=== PATIENT | male | born 1950 | race Caucasian/White ===

== ENCOUNTER 2018-08-25 10:21 | Outpatient (CLI) | payer MEDICARE, SELFPAY ==
[2018-08-25 13:12] LABS: Hemoglobin A1C 7.2 % (4.5-6.2)
== END 2018-08-25 10:41 ==
PROVIDERS: PCP Emergency Medicine; Visit Provider Emergency Medicine
DX: E10.9 Type 1 diabetes mellitus without complications (principal)
CPT/HCPCS: 36415; 83036

== ENCOUNTER 2018-09-30 15:57 | Emergency (ER) | payer MEDICARE, SELFPAY ==
[2018-09-30 16:00] VITALS: BP 138/93; PULSE 94; RESP 16; TEMP 36.2; O2SAT 93
--- NOTE | 2018-09-30 16:13 | DI.CT_ITS ---
SYMPTOM/DIAGNOSIS: LLQ PAIN, R/O DIVERTICULITIS ABDOMINAL AND PELVIC CT: 09/30 CT examination of the abdomen and pelvis was performed with a bolus infusion of 100 cc Omnipaque 350. Images obtained through the lung bases were unremarkable. Note is made of hepatic steatosis. Question cholelithiasis, indeterminate by CT criteria. No biliary dilatation. Unremarkable appearance of the pancreas. Unremarkable appearance of the spleen. Multiple small exophytic renal masses are noted consistent with cysts. No evidence of urinary tract calcification or obstruction. Adrenals are unremarkable in appearance. Abdominal aorta is of normal diameter and no major vascular abnormalities seen. No significant abdominal wall hernia seen. No abdominal or pelvic adenopathy seen. Appendix is normal. There is an area of wall thickening with associated pericolonic fat edema at the descending sigmoid junction consistent with uncomplicated diverticulitis. No evidence of perforation or abscess formation. No evidence of obstruction. CONCLUSION: 1. Findings consistent with acute uncomplicated diverticulitis at the descending sigmoid colon junction 2. Hepatic steatosis 3. Suspect cholelithiasis, ultrasound correlation suggested if clinically appropriate.
[2018-09-30 16:30] LABS: Abs Immature Grans 0.01 k/cumm (0.0-0.09); Absolute Basophil Count 0.03 k/cumm (0.0-0.2); Absolute Eosinophil Count 0.17 k/cumm (0.0-0.7); Absolute Lymphocyte Count 2.57 k/cumm (1.2-3.4); Absolute Monocyte Count 0.75 k/cumm (0.11-0.7); Absolute Neutrophil Count 6.51 k/cumm (1.2-6.7); Basophils % 0.3; Eosinophils % 1.7; HCT 47.2 % (40.0-50.0); HGB 16.4 g/dL (13.5-17.5); Immature Grans % 0.1; Lymphocytes % 25.6; Mean Corp. HGB Concentration 34.7 g/dL (32.0-36.0); Mean Corpuscular Hemoglobin 31.8 pg (27.0-33.0); Mean Corpuscular Volume 91.7 fL (80-95); Mean Platelet Volume 9.4 fL (8.0-11.0); Monocytes % 7.5; Neutrophils % 64.8; Platelet Count 250 x1000/uL (130-400); RBC 5.15 m/cumm (4.50-6.00); RBC Distribution Width 13.6 % (11.8-14.1); White Blood Cell Count 10.04 k/cumm (4.4-10.8)
[2018-09-30 16:44] LABS: ALT 43 U/L (12-78); AST 18 U/L (15-37); Albumin 3.9 g/dL (3.4-5.0); Alkaline Phosphatase 62 U/L (46-116); Anion Gap 7.7 mmol/L (3-11); BUN 17 mg/dL (7-18); Bilirubin, Total 0.4 mg/dL (0.2-1.0); CO2 29.3 mmol/L (21.0-32.0); Chloride 101 mmol/L (98-107); Glucose 178 mg/dL (70-100); Lipase 82 U/L (73-393); Sodium 138 mmol/L (136-145); Total Protein 7.5 g/dL (6.4-8.2)
[2018-09-30] MEDS: Omnipaque 350 MG/ML 100 ML BTL IJ (17:24)
--- NOTE | 2018-09-30 17:27 | ED.GENADUL_ITS ---
Discharge Plan Disposition Patient Disposition: HOME Condition: Good Discharge Details Chief Complaint: Abd Prob Clinical Impression: Diverticulitis Primary Care Provider: Phillip Luo ED Provider: Stone Castaneda Home Meds and New Rx's Prescriptions: New ciprofloxacin HCl [Cipro] 500 mg tablet 500 mg PO BID Qty: 14 RF: 0 metronidazole [Flagyl] 500 mg tablet 500 mg PO TID 7 Days Qty: 21 RF: 0 No Action hydrochlorothiazide 12.5 mg capsule 12.5 mg PO DAILY Qty: 90 RF: 3 lisinopril 10 mg tablet 10 mg PO DAILY Qty: 90 RF: 3 sertraline 100 mg tablet 100 mg PO DAILY Qty: 90 RF: 3 triamcinolone acetonide 0.1 % ointment 1 applic Topical BID Qty: 80 RF: 3 nicotine 21 mg/24 hr patch 24 hour 1 patch TD DAILY Qty: 28 RF: 5 CONTOUR NEXT EZ 1 EACH EACH 1 ea Miscellaneous DAILY Qty: 90 RF: 3 ketoconazole 60 GM cream 60 gm Topical BID Qty: 1 RF: 3 blood-glucose meter 1 EACH misc 1 ea Miscellaneous ONCE Qty: 1 RF: 0 nicotine (polacrilex) [Nicorette] 4 MG gum 4 mg PO Q2H PRN Qty: 100 RF: 4 blood sugar diagnostic [Blood Glucose Test] 1 EACH strip 1 ea Miscellaneous BID Qty: 180 RF: 3 gabapentin 300 MG capsule 2 cap PO HS Qty: 180 RF: 3 Jardiance 10 mg tablet 10 mg PO DAILY Qty: 90 RF: 3 lancets 28 gauge misc 1 ea Miscellaneous DAILY Qty: 100 RF: 0 pravastatin [Pravachol] 20 mg tablet 20 mg PO DAILY Qty: 90 RF: 4 pen needle,diabetic dual safty [BD AutoShield Duo Pen Needle] 30 gauge x 3/16 needle 1 ea Miscellaneous BID Qty: 180 RF: 3 lorazepam 1 mg tablet 1 mg PO HS PRN (Reason: anxiety) Qty: 90 RF: 1 Lantus Solostar U-100 Insulin 100 UNIT/1 ML insulin pen 25 units SQ BID RF: 0 Discharge Instructions Instructions: Diverticulitis (ED) Additional Instructions: Please take Tylenol as needed for pain. Please take the medication as directed. Please do not take any alcohol with the Flagyl. If you notice any pain in your joints that is worsening, or pain in your ankles or your Achilles tendon please stop taking the Cipro and do not perform any vigorous activity. If you notice any worsening of your symptoms, or any new symptoms such as vomiting, diarrhea, fever, chills, shortness of breath, chest pain, numbness, weakness, or fainting , please return immediately to the emergency department for reevaluation. Please follow up with your primary care provider as soon as possible for reassessment and reevaluation. As always, it was a pleasure participating in your medical care today. Referrals: Phillip Luo DO [Primary Care Provider] - Discharge Data Discharge Date/Time-TO BE ENTERED AT DEPARTURE: 09/30/18 18:27 Medical Decision Making This is a pleasant 67-year-old gentleman who with 1 week of quadrant abdominal pain, 2-3 days of mild diarrhea. He has not had any recent antibiot ics, no recent foreign travel or other sick contacts. Physical exam demonstrates mild to moderate left lower quadrant tenderness. No vomiting. Patient has been able to eat still. Vital signs are reassuring. The patient states that his symptoms are consistent with previous episodes of diverticulitis. Due to the patient's age, I do think it is reasonable to get a CT scan of the abdomen to rule out any acute process including diverticulitis or abscess. We will rehydrate the patient, and perform a laboratory workup. Patient is refusing any medications for pain at this time, and states that he would like to tough it out. 6:11 PM Patient's laboratory workup has returned, he has no elevated white count, no bandemia, and no left shift. Electrolytes are normal, lipase is normal. He is afebrile, heart rate is well controlled and vital signs are reassuring. CT scan has returned and does demonstrate evidence of mild diverticulitis with no evidence of abscess. No other significant acute process. Patient's pain is well tolerable and he continues to not want any pain medications. We will give him the first dose of Cipro and Flagyl here, and then a prescription for home use. We discussed red flags for which to return, the need to have low threshold for return, and the importance of close follow-up with his primary care provider. I have extensively reviewed the treatment plan and discharge instructions with the patient. I have addressed all patient concerns at this time. The patient was made aware of what symptoms to monitor for that would warrant a return to the emergency department. Discussed the plan with the patient, they demonstrate verbal understanding and agreement with our assessment and plan at this time. FINDINGS: Lower thorax: Mild paraseptal pulmonary emphysema and dependent changes within the lung bases. No recurrent gastric hiatus hernia. ABDOMEN: Liver: Diffuse fatty infiltration of the liver. No focal hepatic lesion. No intrahepatic duct dilatation. Gallbladder and bile ducts: Faint increased density within the dependent portion of the gallbladder suspicious for sludge versus tiny stones. No pericholecystic inflammation. Pancreas: Unremarkable. No ductal dilation. Spleen: Unremarkable. No splenomegaly. Adrenals: Normal. No mass. Kidneys and ureters: Small exophytic cysts within the left kidney and too small to accurately characterize low-density lesions within both kidneys. No renal stone or hydronephrosis. 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 If there is a discrepancy between the preliminary and final interpretation, please notify [employer] via [email or web address]. If you do not have access to our QA portal, call our QA team at [phone] CONFIDENTIALITY STATEMENT This report is intended only for the use of the referring physician, and only in accordance with law, If you received this in error, call [phone] Page 2 of 2 Stomach and bowel: Status post gastroesophageal fundoplication. Numerous diverticuli throughout the descending and sigmoid colon. Mild diverticulitis at the junction of the distal descending and sigmoid colon. Appendix: No evidence of appendicitis. PELVIS: Bladder: Unremarkable as visualized. Reproductive: Unremarkable as visualized. ABDOMEN and PELVIS: Intraperitoneal space: Unremarkable. No free air. No significant fluid collection. Bones/joints: No acute fracture. Soft tissues: Unremarkable. Vasculature: Unremarkable. No abdominal aortic aneurysm. Lymph nodes: Unremarkable. No enlarged lymph nodes. IMPRESSION: 1. Mild acute diverticulitis at the junction of the descending and sigmoid colon. 2. Diffuse fatty infiltration of the liver. 3. Findings suspicious for gallbladder sludge versus tiny stones. 4. Tiny renal cysts and too small to adequately characterize renal low density lesions. Thank you for allowing us to participate in the care of your patient. Dictated and Authenticated by: Edinson Escalante MD HPI General Date/Time Provider Initiated Documentation: 09/30/18 16:07 . HPI Narrative: This is a 67-year-old male with past medical history of diverticulitis, diabetes, and hypertension who presents today for evaluation of left lower quadrant abdominal pain. He states that over the last 1 week he has had mild to moderate left lower quadrant abdominal pain, mild diarrhea for the last 2-3 days. He denies any hematochezia, melena, or acholic stool. He denies any vomiting or nausea. He states that his symptoms are consistent with his previous episodes of diverticulitis. He denies any systemic symptoms of fever or chills. He denies any recent surgeries or trauma. He has no other complaints at this time. No other modifying or relieving factors. Patient has been eating regularly and has been doing well with his oral diet. He denies any recent pertinent family history, he denies any IV or illicit drug use. Related Data Home Medications Medication Instructions Recorded Confirmed ketoconazole 60 gm TOPICAL BID #1 script 05/29/15 09/30/18 blood-glucose meter #1 ea 11/25/15 08/25/18 nicotine (polacrilex) [Nicorette] 4 mg PO Q2H PRN #100 piece of gum 09/10/16 08/25/18 blood sugar diagnostic [Blood #180 strip 02/10/18 08/25/18 Glucose Test Strip] gabapentin 2 cap PO HS #180 tab-cap 05/23/18 09/30/18 empagliflozin 10 mg tablet 10 mg PO DAILY #90 tab 06/13/18 09/30/18 lancets 28 gauge #100 ea 07/25/18 08/25/18 pravastatin 20 mg tablet 20 mg PO DAILY #90 tab 07/25/18 09/30/18 hydrochlorothiazide 12.5 mg capsule 12.5 mg PO DAILY #90 tab 08/25/18 09/30/18 lisinopril 10 mg tablet 10 mg PO DAILY #90 tab 08/25/18 09/30/18 nicotine 21 mg/24 hr daily 1 patch TD DAILY #28 each 08/25/18 09/30/18 transdermal patch sertraline 100 mg tablet 100 mg PO DAILY #90 tab-cap 08/25/18 09/30/18 triamcinolone acetonide 0.1 % 1 applic TOPICAL BID #80 gm 08/25/18 09/30/18 topical ointment pen needle,diabetic dual safety 30 #180 ndl 08/29/18 gauge x 3/16 lorazepam 1 mg tablet 1 mg PO HS PRN #90 tab-cap 09/12/18 09/30/18 ciprofloxacin HCl [Cipro] 500 mg PO BID #14 tab 09/30/18 insulin glargine [Lantus Solostar] 25 units SQ BID 09/30/18 09/30/18 metronidazole [Flagyl] 500 mg PO TID 7 Days #21 tab 09/30/18 Previous Rx's Medication Instructions Recorded blood sugar diagnostic [Blood #180 strip 02/10/18 Glucose Test Strip] gabapentin 2 cap PO HS #180 tab-cap 05/23/18 empagliflozin 10 mg tablet 10 mg PO DAILY #90 tab 06/13/18 lancets 28 gauge #100 ea 07/25/18 pravastatin 20 mg tablet 20 mg PO DAILY #90 tab 07/25/18 hydrochlorothiazide 12.5 mg capsule 12.5 mg PO DAILY #90 tab 08/25/18 lisinopril 10 mg tablet 10 mg PO DAILY #90 tab 08/25/18 nicotine 21 mg/24 hr daily 1 patch TD DAILY #28 each 08/25/18 transdermal patch sertraline 100 mg tablet 100 mg PO DAILY #90 tab-cap 08/25/18 triamcinolone acetonide 0.1 % 1 applic TOPICAL BID #80 gm 08/25/18 topical ointment pen needle,diabetic dual safety 30 #180 ndl 08/29/18 gauge x 316 lorazepam 1 mg tablet 1 mg PO HS PRN #90 tab-cap 09/12/18 ciprofloxacin HCl [Cipro] 500 mg PO BID #14 tab 09/30/18 metronidazole [Flagyl] 500 mg PO TID 7 Days #21 tab 09/30/18 Allergies Allergy/AdvReac Type Severity Reaction Status Date / Time metformin AdvReac Intermediate diarrhea Verified 08/25/18 09:47 General Stated Complaint: Abd Prob AUDRA: 3 Review of Systems Review of Systems All systems reviewed & are unremarkable except as noted in HPI and below PFSH Medical History COPD (chronic obstructive pulmonary disease) Depression Diabetes mellitus type 2 in obese Hyperlipidemia Hypertension Tobacco abuse disorder Surgical History Arthroscopy, Shoulder (~2000) Colonoscopy - MAC (09/09/17) EGD - MAC [place] Fundoplication sphincterotomy Family History Mother Essential hypertension Heart disease Father Heart disease Sister No problems noted. Sister No problems noted. Sister No problems noted. Sister No problems noted. Brother No problems noted. Brother No problems noted. Brother No problems noted. Brother No problems noted. Brother No problems noted. Social History household members: other details: SELF current occupational status: disabled pets and animals: No frequency: daily duration: 15-30 minutes/day Smoking/Tobacco Use Status: Former Tobacco Use alcohol intake: never substance use type: does not use special catherine needs: No Exam Narrative Exam Narrative: 1.Const: Well-nourished, Well-developed, appearing stated age 2.Eyes: PERRL, no conjunctival injection, and symmetrical lids. 3.ENT: Atraumatic external nose and ears. Moist MM. Neck: Symmetric, trachea midline, No thyromegaly. 4.CVS: +S1/S2, No murmurs or gallops. Peripheral pulses 2+ and equal in all extremities. Brisk capillary refill in all extremities. 5.RESP: Unlabored respiratory effort. Clear to auscultation bilaterally. No wheezes rales or rhonchi 6.GI: Soft, Nondistended, No hepatosplenomegaly. No guarding or rebound. No right lower quadrant or right upper tenderness. Mild to moderate left lower quadrant tenderness. 7.MSK: Normocephalic/Atraumatic, Extremities w/o deformity or ttp No cyanosis or clubbing, Normal movement of all extremities 8.Skin: Warm, Dry. No rashes or lesions. 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 Sensation grossly intact, no focal neurologic deficits. 10.Psych: (AAO) x3. Appropriate mood and affect Course Vital Signs Temperature 36.2 C L 09/30/18 16:00 Pulse 94 H 09/30/18 16:00 Respiratory Rate 16 09/30/18 16:00 Blood Pressure 138/93 H 09/30/18 16:00 Pulse Oximetry 93 L 09/30/18 16:00 Temperature 36.2 C L 09/30/18 16:00 Temperature Source Temporal Artery Scan 09/30/18 16:00 Pulse 94 H 09/30/18 16:00 Respiratory Rate 16 09/30/18 16:00 Respiratory Effort 09/30/18 16:03 Blood Pressure 138/93 H 09/30/18 16:00 Blood Pressure Position Sitting 09/30/18 16:00 Pulse Oximetry 93 L 09/30/18 16:00 Oxygen Delivery Method Room Air 09/30/18 16:00 Oxygen Flow Rate 0 09/30/18 16:00 Pain Level 3 09/30/18 16:00 Lab/Test Results Lab/Test Results: Laboratory Tests Range/Units 09/30/18 09/30/18 16:25 16:25 WBC (4.4-10.8) k/cumm 10.04 RBC (4.50-6.00) m/cumm 5.15 Hgb (13.5-17.5) g/dL 16.4 Hct (40.0-50.0) % 47.2 MCV (80-95) fL 91.7 MCH (27.0-33.0) pg 31.8 MCHC (32.0-36.0) g/dL 34.7 RDW (11.8-14.1) % 13.6 Plt Count (130-400) x1000/uL 250 MPV (8.0-11.0) fL 9.4 Immature Gran % 0.1 Neutrophils % 64.8 Lymphocytes % 25.6 Monocytes % 7.5 Eosinophils % 1.7 Basophils % 0.3 Absolute Neutrophils (1.2-6.7) k/cumm 6.51 Absolute Lymphocytes (1.2-3.4) k/cumm 2.57 Absolute Monocytes (0.11-0.7) k/cumm 0.75 H Absolute Eosinophils (0.0-0.7) k/cumm 0.17 Absolute Basophils (0.0-0.2) k/cumm 0.03 Sodium (136-145) mmol/L 138 Potassium (3.5-5.1) mmol/L 4.0 Chloride (98-107) mmol/L 101 Carbon Dioxide (21.0-32.0) mmol/L 29.3 Anion Gap (3-11) mmol/L 7.7 BUN (7-18) mg/dL 17 Creatinine (0.70-1.30) mg/dL 0.80 Estimated GFR/1.73 m2 (mL/min/1.73m2) >= 60.00 Glucose (70-100) mg/dL 178 H Calcium (8.5-10.1) mg/dL 9.0 Total Bilirubin (0.2-1.0) mg/dL 0.4 AST (15-37) U/L 18 ALT (12-78) U/L 43 Alkaline Phosphatase (46-116) U/L 62 Total Protein (6.4-8.2) g/dL 7.5 Albumin (3.4-5.0) g/dL 3.9 Lipase (73-393) U/L 82
--- NOTE | 2018-09-30 17:55 | DI.VRAD_ITS ---
EXAM: CT Abdomen and Pelvis With Contrast EXAM DATE/TIME: 09/30/2018 4:15 PM CLINICAL HISTORY: 67 years old, male; Signs and symptoms; Abdominal tenderness and other: R/O diverticulitis TECHNIQUE: Axial computed tomography images of the abdomen and pelvis with intravenous contrast. Coronal and sagittal reformatted images were created and reviewed. CONTRAST: 100 ml of [id number] administered intravenously. COMPARISON: CT ABD PELVIS WITH CONTRAST 12/26/2017 1:41 PM FINDINGS: Lower thorax: Mild paraseptal pulmonary emphysema and dependent changes within the lung bases. No recurrent gastric hiatus hernia. ABDOMEN: Liver: Diffuse fatty infiltration of the liver. No focal hepatic lesion. No intrahepatic duct dilatation. Gallbladder and bile ducts: Faint increased density within the dependent portion of the gallbladder suspicious for sludge versus tiny stones. No pericholecystic inflammation. Pancreas: Unremarkable. No ductal dilation. Spleen: Unremarkable. No splenomegaly. Adrenals: Normal. No mass. Kidneys and ureters: Small exophytic cysts within the left kidney and too small to accurately characterize low-density lesions within both kidneys. No renal stone or hydronephrosis. Stomach and bowel: Status post gastroesophageal fundoplication. Numerous diverticuli throughout the descending and sigmoid colon. Mild diverticulitis at the junction of the distal descending and sigmoid colon. Appendix: No evidence of appendicitis. PELVIS: Bladder: Unremarkable as visualized. Reproductive: Unremarkable as visualized. ABDOMEN and PELVIS: Intraperitoneal space: Unremarkable. No free air. No significant fluid collection. Bones/joints: No acute fracture. Soft tissues: Unremarkable. Vasculature: Unremarkable. No abdominal aortic aneurysm. Lymph nodes: Unremarkable. No enlarged lymph nodes. IMPRESSION: 1. Mild acute diverticulitis at the junction of the descending and sigmoid colon. 2. Diffuse fatty infiltration of the liver. 3. Findings suspicious for gallbladder sludge versus tiny stones. 4. Tiny renal cysts and too small to adequately characterize renal low density lesions. Dictated and Authenticated by: Edinson Escalante MD. Ordering:EFRAIN Ritter MD
[2018-09-30] MEDS: Ciprofloxacin 500 MG TAB PO (18:20)
[2018-09-30] MEDS: metroNIDAZOLE 500 MG TAB PO (18:20)
[2018-09-30 18:22] VITALS: BP 125/73; PULSE 73; RESP 16; O2SAT 94
== END 2018-09-30 18:27 | disposition home or self-care (01) ==
PROVIDERS: Emergency Provider Student in an Organized Health Care Education/Training Program; PCP Emergency Medicine
DX: K57.32 Diverticulitis of large intestine without perforation or abscess without bleeding (principal); J44.9 Chronic obstructive pulmonary disease, unspecified; F17.210 Nicotine dependence, cigarettes, uncomplicated; E11.9 Type 2 diabetes mellitus without complications; Z79.4 Long term (current) use of insulin; I10 Essential (primary) hypertension
CPT/HCPCS: 36415; 80053; 83690; 99285; 74177; 85025; J3490

== ENCOUNTER → 2018-10-27 12:58 | Outpatient (BNVA) | payer MEDICARE, SELFPAY | PROVIDERS: PCP Emergency Medicine; Referring Provider Emergency Medicine; Visit Provider Surgery | DX: Z87.19 Personal history of other diseases of the digestive system (principal); Z86.010 Personal history of colon polyps; J44.9 Chronic obstructive pulmonary disease, unspecified; Z87.891 Personal history of nicotine dependence; I10 Essential (primary) hypertension; E11.9 Type 2 diabetes mellitus without complications; Z79.4 Long term (current) use of insulin | CPT/HCPCS: 99214 ==

== ENCOUNTER 2018-11-15 06:11 | Day surgery (SDC) | payer MEDICARE, SELFPAY ==
[2018-11-15 06:32] VITALS: BP 124/86; PULSE 74; RESP 18; TEMP 36; O2SAT 94
--- NOTE | 2018-11-15 06:41 | W.COLOREPORT ---
Date of service: 11/15/18 Time of Service: 07:30 Colonoscopy Report Date of procedure: 11/15/18 Pre-op diagnosis general: Hx of polyps Post-op diagnosis procedure note: other (Polyps and mild diverticulosis) Procedure: Colonoscopy with polypectomy by cold forceps Surgeon: Kimberlyn Hutchinson Anesthesia proc note operative: MAC (Natalia Martinez, FRONT END ALIGNMENT SPECIALIST/ ASA 2) Estimated blood loss (mL): 5 Pathology: other (Ascending Polyp, transverse polyp, descending polyp x2, sigmoid polyp) Complications: None Disposition: same day Indications: Mr. Beach is a pleasant 67 year old male who was seen in the office for another colonoscopy. He was noted to have serrated adenoma last time as well as an ulcerated mass which turned out to be ischemic changes but no malignancy. Risks, benefits and complications have been reviewed. Complications include but are not limited to bleeding, pain, perforation, missed small lesion/polyp, sore throat, aspiration and adverse reaction to the medications. Questions were entertained and answered to their satisfaction and they wished to proceed. No guarantees were given or implied. Prep: Miralax/Dulcolax Procedure Start Time: :30 Procedure End Time: 07:58 Retraction Time: 20 minutes Findings: 1. 5 sessile polyps identified and removed 2. mild diverticulosis from the distal transverse to sigmoid colon 3. mass with ulceration not identified. Tattooed area noted no mass or polyp Procedure Description: After informed consent was obtained the patient was taken to the procedure room and placed in a left decubitous position. Monitors were applied and a time out was done. The patients name, date of , procedure, allergies to medications and metal in their body was reviewed. The patient was then sedated. Once sedated and comfortable a rectal exam was done. External exam was normal. Internal exam revealed a normal sphincter tone and no palpable masses. The scope was then introduced and retro-flexed. No internal hemorrhoids were identified. The scope was then advanced to the cecum without difficulty. The TI and appendiceal orifice were identified. The prep was adequate. The scope was then slowly retracted over 20 minutes back into the rectum. Polyps were removed with cold forceps in the ascending, transverse, descending and sigmoid polyp. There was mild diverticulosis in the distal transverse to the sigmoid colon. The scope was removed and the patient was woken up and taken back to Same day surgery in stable condition. The patient tolerated the procedure well and there were no immediate complications. Follow up: The patient should follow up in 3 years unless they develop changes in bowel habits or other new gastrointestinal complaints.
--- NOTE | 2018-11-15 06:43 | W.PM.DSUDISC ---
Discharge Plan Disposition Patient Disposition: HOME Condition: Good Discharge Details Reason For Visit: Hx of polyps Attending Provider: Kimberlyn Hutchinson Primary Care Provider: Phillip Luo Home Meds and New Rx's Prescriptions: Continued hydrochlorothiazide 12.5 mg capsule 12.5 mg PO DAILY Qty: 90 RF: 3 lisinopril 10 mg tablet 10 mg PO DAILY Qty: 90 RF: 3 sertraline 100 mg tablet 100 mg PO DAILY Qty: 90 RF: 3 triamcinolone acetonide 0.1 % ointment 1 applic Topical BID Qty: 80 RF: 3 nicotine 21 mg/24 hr patch 24 hour 1 patch TD DAILY Qty: 28 RF: 5 CONTOUR NEXT EZ 1 EACH EACH 1 ea Miscellaneous DAILY Qty: 90 RF: 3 ketoconazole 60 GM cream 60 gm Topical BID Qty: 1 RF: 3 blood-glucose meter 1 EACH misc 1 ea Miscellaneous ONCE Qty: 1 RF: 0 Blood Glucose Test 1 EACH strip 1 ea Miscellaneous BID Qty: 180 RF: 3 gabapentin 300 MG capsule 2 cap PO HS Qty: 180 RF: 3 Jardiance 10 mg tablet 10 mg PO DAILY Qty: 90 RF: 3 lancets 28 gauge misc 1 ea Miscellaneous DAILY Qty: 100 RF: 0 pravastatin [Pravachol] 20 mg tablet 20 mg PO DAILY Qty: 90 RF: 4 BD AutoShield Duo Pen Needle 30 gauge x 3/16 needle 1 ea Miscellaneous BID Qty: 180 RF: 3 lorazepam 1 mg tablet 1 mg PO HS PRN (Reason: anxiety) Qty: 90 RF: 1 Lantus Solostar U-100 Insulin 100 UNIT/1 ML insulin pen 25 units SQ BID RF: 0 Discharge Instructions Instructions: Colonoscopy (DC), Colorectal Polyps (DC), Diverticulosis (DC) Additional Instructions: Findings: multiple polyps Diverticulosis Follow up: 3 years Please call if you develop: fevers >101.5 Nausea or Vomiting Abdominal pain that is not transient DAY SURGERY UNIT POST COLONOSCOPY INSTRUCTIONS 1. Because there will be medication in your system for the next 24 hours, you may feel a little sleepy. Your coordination will be affected. Therefore: a. Do not drive or operate dangerous equipment for 24 hours. b. Do not drink alcohol beverages for 24 hours (not even beer). c. Plan to go home and rest for the day. 2. Generally there are no restrictions on your activity after a day or so has gone by, but you may feel a bit fatigued for a few days. 3 After you arrive home you may have a light meal and return to a normal diet as you can tolerate it without feeling sick to your stomach. 4. After surgery, you may feel pain or discomfort. This should be only transient, but if it persists please contact your doctor. 5. If there are any questions regarding the findings of your procedure, please feel free to contact your doctor. 6. If you are unable to contact your doctor with a problem, contact the hospital at [phone]. 7. Continue all your regular medications unless directed otherwise. I understand the above instructions and have no questions. Signature of Patient or Responsible Adult Escort Date/Time Name of Responsible Adult Escort Signature of Nurse Date/Time Activity:: Activity as Tolerated Diet:: high fiber diet Discharge Orders Discharge Orders: Discharge Order (Routine); Ordered 11/15/18 Ordered By: Kimberlyn Hutchinson DS: Diagnosis Discharge Diagnosis (1) S/P colonoscopy: Status: Acute (2) Polyp of colon: Status: Acute (3) Diverticulosis of colon without diverticulitis: Status: Acute
[2018-11-15] MEDS: Lactated Ringers 1,000 ML 80 ML IV (06:46)
--- NOTE | 2018-11-15 07:41 | BOWEL_PTH ---
PATIENT: Juan Carlos Beach LOC: [facility] U#:[id number] AGE/SX: 67/M ROOM: RE11/15/[address]: Kimberlyn Hutchinson MD : 1950 BED: DIS: 11/15/2018 SPEC #: [id number] RECD: 11/15/18 12:25 STATUS: XENA RE #: [id number] RYAN: 11/15/18 07:[address]: Kimberlyn Hutchinson DEPT: Surgical Specimen RECD BY: Alie White ENTERED: 11/15/18 12:29 SP TYPE: Bowel OTHR DR: Phillip Luo DO Tissues: 1 - BIOPSY BOWEL 2 - BIOPSY BOWEL 3 - BIOPSY BOWEL 4 - BIOPSY BOWEL Procedures: GROSS AND MICRO LEVEL 4 Comments: [id number]
[2018-11-15 08:50] VITALS: BP 125/82; PULSE 67; RESP 16; TEMP 36; O2SAT 95
== END 2018-11-15 09:00 | disposition home or self-care (01) ==
PROVIDERS: PCP Emergency Medicine; Visit Provider Surgery
PROC: 0DJD8ZZ Inspection of Lower Intestinal Tract, Via Natural or Artificial Opening Endoscopic (ICD-10-PCS; CPT 45378; principal; 2018-11-15 07:30)
DX: Z12.11 Encounter for screening for malignant neoplasm of colon (principal); D12.2 Benign neoplasm of ascending colon; D12.3 Benign neoplasm of transverse colon; D12.4 Benign neoplasm of descending colon; K63.5 Polyp of colon; J44.9 Chronic obstructive pulmonary disease, unspecified; G47.33 Obstructive sleep apnea (adult) (pediatric); E11.9 Type 2 diabetes mellitus without complications; Z79.4 Long term (current) use of insulin; I10 Essential (primary) hypertension
CPT/HCPCS: 45380; 88305

== ENCOUNTER → 2018-12-26 14:33 | Outpatient (BNVA) | payer MEDICARE, SELFPAY | PROVIDERS: PCP Emergency Medicine; Referring Provider Emergency Medicine; Visit Provider Surgery | DX: K60.2 Anal fissure, unspecified (principal); J44.9 Chronic obstructive pulmonary disease, unspecified; E11.9 Type 2 diabetes mellitus without complications; I10 Essential (primary) hypertension; Z79.4 Long term (current) use of insulin; Z87.891 Personal history of nicotine dependence | CPT/HCPCS: 99213 ==

== ENCOUNTER 2019-02-05 12:20 | Emergency (ER) | payer MEDICARE, SELFPAY ==
[2019-02-05 12:23] VITALS: BP 113/77; PULSE 86; RESP 18; TEMP 36.6; O2SAT 93
--- NOTE | 2019-02-05 17:34 | NUR.NOTE ---
Nursing Note: Referral faxed to Dr. Luo office for patient follow up. Meli Bills.
--- NOTE | 2019-02-06 20:37 | ED.GENADUL_ITS ---
Discharge Plan Disposition Patient Disposition: HOME Condition: Stable Discharge Details Chief Complaint: Orthopedic Clinical Impression: Chronic back pain, Diabetic neuropathy, Chronic left shoulder pain Primary Care Provider: Phillip Luo ED Provider: Ofelia Laboy Home Meds and New Rx's Prescriptions: Continued hydrochlorothiazide 12.5 mg capsule 12.5 mg PO DAILY Qty: 90 RF: 3 lisinopril 10 mg tablet 10 mg PO DAILY Qty: 90 RF: 3 sertraline 100 mg tablet 100 mg PO DAILY Qty: 90 RF: 3 triamcinolone acetonide 0.1 % ointment 1 applic Topical BID Qty: 80 RF: 3 nicotine 21 mg/24 hr patch 24 hour 1 patch TD DAILY Qty: 28 RF: 5 CONTOUR NEXT EZ 1 EACH EACH 1 ea Miscellaneous DAILY Qty: 90 RF: 3 ketoconazole 60 GM cream 60 gm Topical BID Qty: 1 RF: 3 blood-glucose meter 1 EACH misc 1 ea Miscellaneous ONCE Qty: 1 RF: 0 Blood Glucose Test 1 EACH strip 1 ea Miscellaneous BID Qty: 180 RF: 3 gabapentin 300 MG capsule 2 cap PO HS Qty: 180 RF: 3 Jardiance 10 mg tablet 10 mg PO DAILY Qty: 90 RF: 3 pravastatin [Pravachol] 20 mg tablet 20 mg PO DAILY Qty: 90 RF: 4 BD AutoShield Duo Pen Needle 30 gauge x 3/16 needle 1 ea Miscellaneous BID Qty: 180 RF: 3 lorazepam 1 mg tablet 1 mg PO HS PRN (Reason: anxiety) Qty: 90 RF: 1 lancets 28 gauge misc 1 ea Miscellaneous DAILY Qty: 100 RF: 4 Lantus Solostar U-100 Insulin 100 UNIT/1 ML insulin pen 27 units SQ BID RF: 0 Discharge Instructions Instructions: Diabetic Peripheral Neuropathy (ED), Chronic Back Pain (ED), Arthritis (ED) Additional Instructions: Please return immediately to the emergency department if you develop any new or worsening symptoms or if you become otherwise concerned. It is extremely important to make an appointment to be seen soon as possible by your primary care doctor in follow-up for this visit. Referrals: Phillip Luo, DO [Primary Care Provider] - Discharge Data Discharge Date/Time-TO BE ENTERED AT DEPARTURE: 02/05/19 14:25 Medical Decision Making Juan Carlos Beach is a 68 y/o man with h/o HLD, HTN, DM who presented to the emergency department with chronic b/l shoulder pain, chronic low back pain, chronic diabetic neuropathy. On exam Pt is well and non-toxic appearing. Exam/hx not c/w septic joint, sepsis, cauda equina syndrome, significant metabolic/lyte derangement, ACS, other acute emergent life or limb threating process. No emergent testing indicated at this time. Pt states to me that he came here to get help seeing Dr. Luo. Pt placed on list for care management to faciliate outpt f/u. I had a lengthy discussion with the Pt re: RTED precautions, importance of outpt f/u, home. Pt discharged to home with clear plan for outpt f/u. Pt verbalized understanding of the plan and was amenable. All questions were answered. Medical Records Medical records reviewed: Yes I reviewed the patient's medical records. HPI General Mode of arrival: ambulatory . Date/Time Provider Initiated Documentation: 02/05/19 12:26 . Limitations to Documentation: no limitations . Information obtained by: patient, RN notes reviewed and old records reviewed . HPI Narrative: Juan Carlos Beach is a 68 y/o man with h/o DM, HLD, HTN presenting to the emergency department with back pain, left shoulder pain, and diabetic neuropathy. Pt reports that he has had chronic pain in his left lower back and hip for months. Pt reports that his pain is intermittent and worse when he is very active. Pt reports that he is not currently experiencing pain in his lower back or hip right now while in the ED. Pt also reports that he has chronic pain in both of his shoulders, which acts up if I sleep on it. Pt reports that he has been sleeping on his left side more than usual recently, and has had pain in the shoulder in the morning when he wakes up. He denies any pain in either shoulder right now. He denies having shoulder pain during the day, and denies any exertional component. Pt also reports that he has chronic numbness and tingling in his toes b/l, which has been on-going for more than a year 2/2 diabetic neuropathy. Unchanged, no acute complaint. Pt reports that all of symptoms are chronic and unchanged acutely. He states that he has seen his PCP, Dr. Luo, for these symptoms, but is frustrated that they are on-going. He states that Dr. Luo has been on vacation for a month (though returning this week), and he wants to re-assessed for these complaints. He denies chest p ain, abd pain, fever, n/v/d/c, rash, weakness, SOB, cough, recent illness, recent travel. Normal appetite and PO intake. Related Data Home Medications Medication Instructions Recorded Confirmed ketoconazole 60 gm TOPICAL BID #1 script 05/29/15 02/05/19 blood-glucose meter #1 ea 11/25/15 12/26/18 Blood Glucose Test #180 strip 02/10/18 12/26/18 gabapentin 2 cap PO HS #180 tab-cap 05/23/18 02/05/19 empagliflozin 10 mg tablet 10 mg PO DAILY #90 tab 06/13/18 02/05/19 pravastatin 20 mg tablet 20 mg PO DAILY #90 tab 07/25/18 02/05/19 hydrochlorothiazide 12.5 mg capsule 12.5 mg PO DAILY #90 tab 08/25/18 02/05/19 lisinopril 10 mg tablet 10 mg PO DAILY #90 tab 08/25/18 02/05/19 nicotine 21 mg/24 hr daily 1 patch TD DAILY #28 each 08/25/18 02/05/19 transdermal patch sertraline 100 mg tablet 100 mg PO DAILY #90 tab-cap 08/25/18 02/05/19 triamcinolone acetonide 0.1 % 1 applic TOPICAL BID #80 gm 08/25/18 02/05/19 topical ointment pen needle,diabetic dual safety 30 #180 ndl 08/29/18 12/26/18 gauge x 12/23 lorazepam 1 mg tablet 1 mg PO HS PRN #90 tab-cap 09/12/18 02/05/19 Lantus Solostar U-100 Insulin 27 units SQ BID 09/30/18 02/05/19 lancets 28 gauge #100 ea 11/24/18 12/26/18 Previous Rx's Medication Instructions Recorded Blood Glucose Test #180 strip 02/10/18 gabapentin 2 cap PO HS #180 tab-cap 05/23/18 empagliflozin 10 mg tablet 10 mg PO DAILY #90 tab 06/13/18 pravastatin 20 mg tablet 20 mg PO DAILY #90 tab 07/25/18 hydrochlorothiazide 12.5 mg capsule 12.5 mg PO DAILY #90 tab 08/25/18 lisinopril 10 mg tablet 10 mg PO DAILY #90 tab 08/25/18 nicotine 21 mg/24 hr daily 1 patch TD DAILY #28 each 08/25/18 transdermal patch sertraline 100 mg tablet 100 mg PO DAILY #90 tab-cap 08/25/18 triamcinolone acetonide 0.1 % 1 applic TOPICAL BID #80 gm 08/25/18 topical ointment pen needle,diabetic dual safety 30 #180 ndl 08/29/18 gauge x 12/23 lorazepam 1 mg tablet 1 mg PO HS PRN #90 tab-cap 09/12/18 lancets 28 gauge #100 ea 11/24/18 Allergies Allergy/AdvReac Type Severity Reaction Status Date / Time metformin AdvReac Intermediate diarrhea Verified 02/05/19 12:28 General AUDRA: 3 Review of Systems Review of Systems Constitutional: denies fevers Eyes: denies eye pain ENT: denies facial pain, dental pain, sore throat Cardiovascular: denies chest pain, edema Respiratory: denies SOB, cough GI: denies abdominal pain, vomiting, diarrhea : denies flank pain MSK: denies neck pain, myalgias, reports back pain, b/l shoulder pain Skin: denies rash Neuro: denies headaches, weakness, reports numbness b/l toes PFSH Medical History Sessile colonic polyp (Acute ~09/2017) COPD (chronic obstructive pulmonary disease) Depression Diabetes mellitus type 2 in obese Hyperlipidemia Hypertension Tobacco abuse disorder Social History Smoking/Tobacco Use Status: Former Tobacco Use Alcohol Intake: never Drug use: Never Substance use type: does not use Household members: other Details: SELF Pets and animals: No Duration: 15-30 minutes/day Frequency: daily Special catherine needs: No Do you feel safe in your relationship?: Yes Exam Narrative Exam Narrative: Constitutional: well and [id number], pleasant, conversing normally HENT: head atraumatic/normocephalic/normal inspection, mucous membranes moist Eyes: conjunctiva normal, sclera normal, pupils 3mm b/l Neck: no stridor, normal ROM, trachea midline Chest: normal inspection Resp: normal work of breathing, LCTAB Cardio: normal rate, normal rhythm, no murmur appreciated GI: abdomen soft, non-tender, non-distended Back: normal inspection, no rash, b/l paraspinals, lumbar spine NTTP Skin: warm, dry, normal color, no rash Neuro: alert, not altered, grossly non-focal, normal tone, normal gait Ext: no edema, b/l feet WWP, DP pulses intact and symmetric, brisk cap refill, sensation intact. b/l shoulders NTTP, pain reproduced with external and internal rotation but shoulders NTTP, ROM not limited 2/2 pain, no edema or overlying skin changes Psych: normal mood, normal affect, normal behavior
== END 2019-02-05 14:25 | disposition home or self-care (01) ==
PROVIDERS: Emergency Provider Student in an Organized Health Care Education/Training Program; PCP Emergency Medicine
DX: G89.29 Other chronic pain (principal); M25.552 Pain in left hip; M54.5 Low back pain; M25.512 Pain in left shoulder; M25.511 Pain in right shoulder; E11.40 Type 2 diabetes mellitus with diabetic neuropathy, unspecified; R20.2 Paresthesia of skin; Z79.4 Long term (current) use of insulin; J44.9 Chronic obstructive pulmonary disease, unspecified; Z87.891 Personal history of nicotine dependence; I10 Essential (primary) hypertension
CPT/HCPCS: 99282

== ENCOUNTER 2019-02-14 10:49 | Outpatient (CLI) | payer MEDICARE, SELFPAY ==
[2019-02-14 14:22] LABS: Anion Gap 10.1 mmol/L (3-11); BUN 14 mg/dL (7-18); CO2 27.9 mmol/L (21.0-32.0); CREATININE 0.86 mg/dL (0.70-1.30); Calcium 8.8 mg/dL (8.5-10.1); Chloride 100 mmol/L (98-107); Glucose 106 mg/dL (70-100); Potassium 4.2 mmol/L (3.5-5.1); Sodium 138 mmol/L (136-145)
== END 2019-02-14 11:09 ==
PROVIDERS: PCP Emergency Medicine; Visit Provider Emergency Medicine
DX: E11.9 Type 2 diabetes mellitus without complications (principal); E11.65 Type 2 diabetes mellitus with hyperglycemia; I10 Essential (primary) hypertension
CPT/HCPCS: 36415; 80048; 83036

== ENCOUNTER 2019-04-06 11:29 | Outpatient (CLI) | payer MEDICARE, SELFPAY ==
--- NOTE | 2019-04-06 11:00 | DI.RAD_ITS ---
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 There is a mild left convex lumbar scoliosis. There are prominent changes of end plate hypertrophy and to a lesser degree facet hypertrophy throughout the lumbar region. Intervertebral disc spaces are fairly well maintained. No evidence of spondylolysis or spondylolisthesis. CONCLUSION: Prominent hypertrophic degenerative changes of the lumbar spine. No evidence of fracture.
== END 2019-04-06 11:49 ==
PROVIDERS: PCP Emergency Medicine; Visit Provider Emergency Medicine
DX: M54.32 Sciatica, left side (principal); M47.26 Other spondylosis with radiculopathy, lumbar region
CPT/HCPCS: 72110

== ENCOUNTER 2019-09-26 15:11 | Outpatient (CLI) | payer MEDICARE, SELFPAY | END 2019-09-26 15:31 | PROVIDERS: PCP Emergency Medicine; Visit Provider Emergency Medicine | DX: E11.9 Type 2 diabetes mellitus without complications (principal) | CPT/HCPCS: 83036 ==

== ENCOUNTER 2020-03-27 03:34 | Outpatient (CLI) | payer MEDICARE, SELFPAY ==
--- NOTE | 2020-03-27 09:15 | DI.CT_ITS ---
EXAM: CT NECK CHEST W CLINICAL HISTORY: node right neck at angle of jaw,HEAD AND NECK LYMPHADENOPATHY,R59.1 TECHNIQUE: Imaging Protocol: Axial computed tomography images with coronal and sagittal reformatted images were created and reviewed CONTRAST MATERIAL: Intravenous: Omnipaque 350 Contrast volume:70 cc COMPARISON: No exams were available for comparison FINDINGS: NECK CT: There are enlarged lymph nodes on both sides of the neck. There is a 2 cm node seen beneath the leve l of the parotid gland, adjacent to the mandible. A lymph node is seen posterior to the right paroti d gland measuring 11 millimeters. A 1.7 sent centimeter node is seen adjacent to the left mandible. There are a few other tiny lymph nodes on both sides of the neck. The parotid and submandibular glands appear normal. Tiny cyst is seen at the lower pole of the right lobe of the thyroid. Advanced degenerative changes in the cervical spine. No lytic or blastic lesions are seen. CHEST CT: Tracheobronchial tree: Patent . Pulmonary parenchyma: No consolidation or dominant measurable mass. Emphysematous changes, greatest a t the upper lobes.. Pleura: No effusion or pneumothorax. Heart: The heart is not dilated. Mild coronary artery calcifications are seen. Aorta: Thoracic aorta non-dilated. Upper abdomen: Severe fatty infiltration of the liver. Small cysts at the upper pole of the left ki dney. Normal size spleen. Small hiatal hernia. Lymph nodes: Mildly enlarged mediastinal lymph nodes, the largest in the subcarinal region measuring 2 cm. Bones: Degenerative changes. No lytic or blastic lesions. A 3.8 centimeter lipoma seen inferior to the left glenoid. IMPRESSION: Enlarged lymph nodes in both sides of the neck, greater on the right. Mildly enlarged mediastinal ly mph nodes. No pulmonary masses. Findings could represent lymphoma. RADIATION DOSE DELIVERED: 753.76mGy.cm Total DLP DATA REPOSITORY: All CT scans at this facility are submitted to the National Radiology Data Registry (NRDR) Dose Index Registry (DIR) with the [employer] (A[employer]). RADIATION OPTIMIZATION: All CT scans at this facility use at least one of these dose optimization te chniques: automated exposure control; mA and/or kV adjustment per patient size (includes targeted exa ms where dose is matched to clinical indication); or iterative reconstruction.
[2020-03-27 12:48] LABS: Anion Gap 8.9 mmol/L (3-11); BUN 12 mg/dL (7-18); CO2 28.1 mmol/L (21.0-32.0); CREATININE 0.93 mg/dL (0.70-1.30); Calcium 9.2 mg/dL (8.5-10.1); Chloride 103 mmol/L (98-107); Glucose 159 mg/dL (74-106); Potassium 4.1 mmol/L (3.5-5.1); Sodium 140 mmol/L (136-145)
[2020-03-27] MEDS: Omnipaque 350 MG/ML 100 ML BTL IJ (13:46)
== END 2020-03-27 03:54 ==
PROVIDERS: PCP Emergency Medicine; Visit Provider Emergency Medicine
DX: R22.1 Localized swelling, mass and lump, neck (principal); R59.0 Localized enlarged lymph nodes; J43.8 Other emphysema; K76.0 Fatty (change of) liver, not elsewhere classified; K44.0 Diaphragmatic hernia with obstruction, without gangrene; N28.1 Cyst of kidney, acquired; E11.9 Type 2 diabetes mellitus without complications; I10 Essential (primary) hypertension
CPT/HCPCS: 70491; 80048; 71260; 83036; J3490

== ENCOUNTER 2020-04-04 01:54 | Outpatient (CLI) | payer MEDICARE, SELFPAY ==
[2020-04-04 13:01] LABS: Abs Immature Grans 0.01 k/cumm (0.0-0.09); Absolute Basophil Count 0.03 k/cumm (0.0-0.2); Absolute Eosinophil Count 0.21 k/cumm (0.0-0.7); Absolute Lymphocyte Count 2.25 k/cumm (1.2-3.4); Absolute Monocyte Count 0.55 k/cumm (0.11-0.7); Absolute Neutrophil Count 3.37 k/cumm (1.2-6.7); Basophils % 0.5; Eosinophils % 3.3; HCT 44.9 % (40.0-50.0); HGB 15.6 g/dL (13.5-17.5); Immature Grans % 0.2 %; Mean Corp. HGB Concentration 34.7 g/dL (32.0-36.0); Mean Corpuscular Hemoglobin 31.6 pg (27.0-33.0); Mean Corpuscular Volume 91.1 fL (80-95); Mean Platelet Volume 9.5 fL (8.0-11.0); Monocytes % 8.6; Neutrophils % 52.4; Platelet Count 235 x1000/uL (130-400); RBC 4.93 m/cumm (4.50-6.00); RBC Distribution Width 13.1 % (11.8-14.1); White Blood Cell Count 6.42 k/cumm (4.4-10.8)
[2020-04-04 13:47] LABS: ALT 43 U/L (16-63); AST 17 U/L (15-37); Alkaline Phosphatase 53 U/L (46-116); Anion Gap 10.9 mmol/L (3-11); BUN 23 mg/dL (7-18); Bilirubin, Total 0.4 mg/dL (0.2-1.0); CO2 25.1 mmol/L (21.0-32.0); CREATININE 0.89 mg/dL (0.70-1.30); Calcium 8.9 mg/dL (8.5-10.1); Chloride 100 mmol/L (98-107); Glucose 151 mg/dL (74-106); LDH 155 U/L (85-227); Potassium 4.2 mmol/L (3.5-5.1); Sodium 136 mmol/L (136-145); Total Protein 6.9 g/dL (6.4-8.2)
[2020-04-07 14:26] LABS: Albumin 59.9 % (55.8-66.1); Total Protein 6.8 g/dL (6.3-8.2)
== END 2020-04-04 02:14 ==
PROVIDERS: PCP Emergency Medicine; Visit Provider Emergency Medicine
DX: R07.1 Chest pain on breathing (principal); R59.1 Generalized enlarged lymph nodes
CPT/HCPCS: 36415; 80053; 83615; 84165; 85025

== ENCOUNTER 2020-04-17 09:50 | Emergency (ER) | payer MEDICARE, SELFPAY ==
[2020-04-17 09:54] VITALS: BP 146/100; PULSE 100; RESP 18; TEMP 36.8; O2SAT 95
--- NOTE | 2020-04-17 10:17 | NUR.NOTE ---
Nursing Note: During medication review was noted to have order for Tramadol 50mg QID PRN in chart submitted today by Dr. Velazco. Pt states he has never had this medication before and is unsure where this would be sent. Call placed to PCP office [facility]- patient had left message this morning regarding increased pain, was seen by primary yesterday and pain not mentioned. Dr. Velazco covering for Dr. Luo today wrote prescription to get patient through the next [address] Luo returns to office and can re-evaluate. RONALD Stein made aware of above orders
--- NOTE | 2020-04-17 10:23 | ED.GENADUL_ITS ---
Discharge Plan Disposition Patient Disposition: HOME Condition: Stable Discharge Details Chief Complaint: GenMedical Clinical Impression: Warthin tumor Primary Care Provider: Phillip Luo ED Provider: Alan Araya Home Meds and New Rx's Prescriptions: Continued gabapentin 300 mg capsule 600 mg PO HS Qty: 180 RF: 3 nicotine (polacrilex) [Nicorette] 4 mg gum 4 mg PO Q2H PRN Qty: 100 RF: 5 CONTOUR NEXT EZ 1 EACH EACH 1 ea Miscellaneous DAILY Qty: 90 RF: 3 (DME) blood-glucose meter 1 EACH misc 1 ea Miscellaneous ONCE Qty: 1 RF: 0 (DME) BD AutoShield Duo Pen Needle 30 gauge x 3/16 needle 1 ea Miscellaneous BID Qty: 180 RF: 3 hydrochlorothiazide 12.5 mg capsule 12.5 mg PO DAILY Qty: 90 RF: 3 lisinopril 10 mg tablet 10 mg PO DAILY Qty: 90 RF: 3 Jardiance 10 mg tablet 10 mg PO DAILY Qty: 90 RF: 3 sertraline 100 mg tablet 100 mg PO DAILY Qty: 90 RF: 3 (DME) Blood Glucose Test Strip 1 ea Miscellaneous BID Qty: 180 RF: 3 pravastatin [Pravachol] 20 mg tablet 20 mg PO DAILY Qty: 90 RF: 4 lorazepam 1 mg tablet 1 mg PO HS PRN (Reason: anxiety) Qty: 90 RF: 1 triamcinolone acetonide 0.1 % ointment 1 applic Topical BID Qty: 80 RF: 3 ketoconazole 2 % cream 1 applic Topical BID Qty: 30 RF: 3 (DME) lancets 28 gauge misc 1 ea Miscellaneous DAILY Qty: 100 RF: 4 Lantus Solostar U-100 Insulin 100 unit/mL (3 mL) insulin pen 27 unit subcut BID Qty: 15 RF: 6 tramadol 50 mg tablet 50 mg PO QID PRN (Reason: pain) Qty: 10 RF: 0 Discharge Instructions Additional Instructions: It would appear that your primary care provider is not in the office today but Dr. Velazco who is covering for that office has already called in a prescription for pain medication to your pharmacy. Dr. Velazco will talk with Dr. Luo tomorrow who would then be in contact with you regarding your increased symptoms, pain medicine, pain control, and follow-up at [facility]. As we discussed tramadol can be an addictive medication which can cause sleepiness and constipation. We discussed [id number] stool softener would be reasonable to take while on pain medication. Please watch for new or worsening symptoms and return to the ER for any concerns. Medical Decision Making 69-year-old gentleman with a known of Warthin tumor, in the process of establishing ENT care at [facility] presents for pain control of his known tumor and recent biopsy. Was actually seen by his primary care provider yesterday, I was able to review this note. Patient is afebrile, he does have tender swollen right sided lymphadenopathy but there is no tracheal deviation, respiratory or airway compromise. After contacting the primary care office and understanding that his phone call was actually answered and there is a prescription for tramadol at his pharmacy patient does not wish for any further ER evaluation would like to go fill this medication. Patient was given education regarding t ramadol. Patient with no additional questions or concerns. Upon discharge appears to be in no distress. Speaks in full sentences, manages his secretions no difficulty, and is in no respiratory distress. He will reach out to the office of Dr. Ahmadi tomorrow to discuss pain control and his ongoing evaluation of his symptoms. Medical Records Medical records reviewed: Yes I reviewed the patient's medical records. HPI General Mode of arrival: ambulatory . Date/Time Provider Initiated Documentation: 04/17/20 10:02 . Limitations to Documentation: no limitations . Information obtained by: patient . HPI Narrative: This is a 69-year-old gentleman with past medical history including diabetes, hypertension, COPD, Warthin tumor and recent biopsy at [facility]. He is being worked up as an outpatient by his primary care provider and actually saw them yesterday, Dr. Luo. I reviewed the medical note from yesterday, describes the biopsy being nearly 2 weeks ago and the tumor is increasing in size and discomfort. Dr. Luo is in the process of trying to expedite outpatient care through [facility]. Patient contacted his primary care office this morning and attempt to obtain pain control. During his med rec here in the ER it appears as though he was prescribed tramadol this morning. After contacting the office of his primary care, it appears as though Dr. Luo is out of the office today but Dr. Velazco covering for Dr. Luo wrote for tramadol. The prescription is already at the pharmacy and Dr. Velazco will have Dr. Luo follow-up with the patient tomorrow. 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 He has no fever, difficulty swallowing, speaking or breathing. Related Data Home Medications Medication Instructions Recorded Confirmed blood-glucose meter #1 ea 11/25/15 04/16/20 pen needle,diabetic dual safty 30 #180 ndl 03/23/19 04/16/20 gauge x 12/23 hydrochlorothiazide 12.5 mg capsule 12.5 mg PO DAILY #90 tab 04/24/19 04/17/20 lisinopril 10 mg tablet 10 mg PO DAILY #90 tab 04/24/19 04/17/20 gabapentin 300 mg capsule 600 mg PO HS #180 tab-cap 05/04/19 04/17/20 empagliflozin 10 mg tablet 10 mg PO DAILY #90 tab 08/07/19 04/17/20 sertraline 100 mg tablet 100 mg PO DAILY #90 tab-cap 08/28/19 04/17/20 blood sugar diagnostic #180 strip 09/25/19 04/16/20 pravastatin 20 mg tablet 20 mg PO DAILY #90 tab 10/04/19 04/17/20 lorazepam 1 mg tablet 1 mg PO HS PRN #90 tab-cap 11/06/19 04/17/20 ketoconazole 2 % topical cream 1 applic TOPICAL BID #30 gm 11/14/19 04/17/20 triamcinolone acetonide 0.1 % 1 applic TOPICAL BID #80 gm 11/14/19 04/16/20 topical ointment nicotine (polacrilex) 4 mg gum 4 mg PO Q2H PRN #100 piece of gum 01/23/20 04/17/20 lancets 28 gauge #100 ea 02/27/20 04/16/20 insulin glargine 100 unit/mL (3 27 unit SUBCUT BID #15 ml 03/18/20 04/17/20 mL) subcutaneous pen tramadol 50 mg tablet 50 mg PO QID PRN #10 tab 04/17/20 04/17/20 Previous Rx's Medication Instructions Recorded pen needle,diabetic dual safty 30 #180 ndl 03/23/19 gauge x / hydrochlorothiazide 12.5 mg capsule 12.5 mg PO DAILY #90 tab 04/24/19 lisinopril 10 mg tablet 10 mg PO DAILY #90 tab 04/24/19 gabapentin 300 mg capsule 600 mg PO HS #180 tab-cap 05/04/19 empagliflozin 10 mg tablet 10 mg PO DAILY #90 tab 08/07/19 sertraline 100 mg tablet 100 mg PO DAILY #90 tab-cap 08/28/19 blood sugar diagnostic #180 strip 09/25/19 pravastatin 20 mg tablet 20 mg PO DAILY #90 tab 10/04/19 lorazepam 1 mg tablet 1 mg PO HS PRN #90 tab-cap 11/06/19 ketoconazole 2 % topical cream 1 applic TOPICAL BID #30 gm 11/14/19 triamcinolone acetonide 0.1 % 1 applic TOPICAL BID #80 gm 11/14/19 topical ointment nicotine (polacrilex) 4 mg gum 4 mg PO Q2H PRN #100 piece of gum 01/23/20 lancets 28 gauge #100 ea 02/27/20 insulin glargine 100 unit/mL (3 27 unit SUBCUT BID #15 ml 03/18/20 mL) subcutaneous pen tramadol 50 mg tablet 50 mg PO QID PRN #10 tab 04/17/20 Allergies Allergy/AdvReac Type Severity Reaction Status Date / Time metformin AdvReac Intermediate diarrhea Verified 04/17/20 10:00 General Stated Complaint: GenMedical AUDRA: 3 Review of Systems Constitutional Constitutional: Denies fever(s) and Denies headache(s) ENT Ears, Nose, Mouth, and Throat: Denies headache(s), Reports neck mass, Reports neck pain, Denies sore throat and Denies throat swelling Cardiovascular Cardiovascular: Denies chest pain and Denies dyspnea Respiratory Respiratory: Denies cough and Denies dyspnea Musculoskeletal Musculoskeletal: Reports neck pain Integumentary/Breasts Skin/Breast: Denies rash Neurologic Neurologic: Denies headache(s) Allergic/Immunologic Allergic/Immunologic: Denies throat swelling PFSH Medical History COPD (chronic obstructive pulmonary disease) Depression Diabetes mellitus type 2 in obese Head and neck lymphadenopathy (Acute) Hyperlipidemia Hypertension Sessile colonic polyp (Acute ~09/2017) Tobacco abuse disorder Warthin tumor (Acute) Surgical History Arthroscopy, Shoulder (~2000) Colonoscopy - MAC (09/09/17) EGD - [facility] [place] Fundoplication sphincterotomy Family History Mother Essential hypertension Heart disease Father Heart disease Sister No problems noted. Sister No problems noted. Sister No problems noted. Sister No problems noted. Brother No problems noted. Brother No problems noted. Brother No problems noted. Brother No problems noted. Brother No problems noted. Social History Smoking/Tobacco Use Status: Former Tobacco Use Alcohol Intake: never Drug use: Never Substance use type: does not use Household members: other Details: SELF Pets and animals: No Duration: 15-30 minutes/day Frequency: daily Special catherine needs: No Do you feel safe in your relationship?: Yes Exam Const General: cooperative, healthy appearing, comfortable and no acute distress Orientation: alert, awake and oriented x3 HENMT Head: normal to inspection, normocephalic and atraumatic Face and sinus: normal facial exam Mouth: moist mucous membranes Throat: posterior oropharynx normal and uvula not midline Eyes Conjunctivae: conjunctivae normal Sclera: sclerae normal Neck Neck: full ROM, no meningeal signs, trachea midline, supple, tender (Right sided anterior swelling and tender lymphadenopathy) and no tracheal deviation Resp Effort & Inspection: normal respiratory effort and able to speak in complete sentences Auscultation: clear to auscultation bilaterally Cardio Rate: regular rate Rhythm: regular rhythm Skin General skin exam: no rashes or lesions noted Neuro General: patient alert, patient awake, moves all extremities and no focal motor deficits Sensory Exam: no sensory deficits noted Psych Appearance: grossly normal Mental Status: mental status grossly normal Course Vital Signs Vital signs: Vital Signs Temperature 36.8 C 04/17/20 09:54 Pulse 100 H 04/17/20 09:54 Respiratory Rate 18 04/17/20 09:54 Blood Pressure 146/100 H 04/17/20 09:54 Pulse Oximetry 95 04/17/20 09:54 Temperature 36.8 C 04/17/20 09:54 Temperature Source Skin 04/17/20 09:54 Pulse 100 H 04/17/20 09:54 Respiratory Rate 18 04/17/20 09:54 Respiratory Effort Non-Labored 04/17/20 10:12 Respiratory Pattern Normal 04/17/20 10:12 Blood Pressure 146/100 H 04/17/20 09:54 Blood Pressure Position Sitting 04/17/20 09:54 Pulse Oximetry 95 04/17/20 09:54 Oxygen Delivery Method Room Air 04/17/20 09:54 Oxygen Flow Rate 0 04/17/20 09:54 Pain Level 6 04/17/20 09:54
== END 2020-04-17 10:30 | disposition home or self-care (01) ==
PROVIDERS: Emergency Provider Physician Assistant; PCP Emergency Medicine
DX: D11.9 Benign neoplasm of major salivary gland, unspecified (principal); E11.9 Type 2 diabetes mellitus without complications; Z79.4 Long term (current) use of insulin; I10 Essential (primary) hypertension; J44.9 Chronic obstructive pulmonary disease, unspecified
CPT/HCPCS: 99282; 99283

== ENCOUNTER 2020-05-20 08:02 | Outpatient (CLI) | payer MEDICARE, SELFPAY ==
[2020-05-21 14:50] LABS: COVID-19 RT-PCR Result NEGATIVE (Negative)
== END 2020-05-20 08:22 ==
PROVIDERS: PCP Emergency Medicine; Visit Provider Emergency Medicine
DX: Z11.59 Encounter for screening for other viral diseases (principal)
CPT/HCPCS: U0003

== ENCOUNTER 2020-10-31 19:18 | Outpatient (REF) | payer MEDICARE, SELFPAY ==
[2020-10-31 18:27] LABS: Anion Gap 12.3 mmol/L (3-11); BUN 16 mg/dL (7-18); CO2 22.7 mmol/L (21.0-32.0); CREATININE 0.63 mg/dL (0.70-1.30); Calcium 8.6 mg/dL (8.5-10.1); Chloride 105 mmol/L (98-107); Glucose 137 mg/dL (74-106); Potassium 4.1 mmol/L (3.5-5.1); Sodium 140 mmol/L (136-145)
[2020-10-31 18:30] LABS: Hemoglobin A1C 8.8 % (<5.7)
== END 2020-10-31 19:38 ==
LOC: NCHCN 19:18
PROVIDERS: PCP Emergency Medicine; Visit Provider Emergency Medicine
DX: E11.9 Type 2 diabetes mellitus without complications (principal); I10 Essential (primary) hypertension
CPT/HCPCS: 80048; 83036

== ENCOUNTER 2021-02-25 19:10 | Outpatient (REF) | payer MEDICARE, SELFPAY ==
[2021-02-25 18:59] LABS: BUN 14 mg/dL (7-18); CREATININE 0.9 mg/dL (0.70-1.30); Calcium 8.6 mg/dL (8.5-10.1); Chloride 104 mmol/L (98-107); Glucose 151 mg/dL (74-106); Potassium 4.1 mmol/L (3.5-5.1); Sodium 141 mmol/L (136-145)
[2021-02-25 19:10] LABS: Hemoglobin A1C 7.3 % (<5.7)
== END 2021-02-25 19:11 | disposition home or self-care (01) ==
LOC: NCHCN 19:10
PROVIDERS: PCP Emergency Medicine; Visit Provider Emergency Medicine
DX: I10 Essential (primary) hypertension (principal); E11.9 Type 2 diabetes mellitus without complications
CPT/HCPCS: 80048; 83036

== ENCOUNTER 2021-07-24 00:28 | Outpatient (CLI) | payer MEDICARE, SELFPAY ==
--- NOTE | 2021-07-24 07:00 | DI.MRI_ITS ---
Exam(s) MR CERVICAL SPINE WO EXAM: MR CERVICAL SPINE WO CLINICAL HISTORY: neck pain with bilat. arm weakness,RADICULOPATHY,M54.12,R29.898 TECHNIQUE: Multiplanar multisequence MRI of the cervical spine was performed without intravenous con trast. COMPARISON: No exams were available for comparison FINDINGS: BONES: Vertebral body heights are maintained. Intervertebral disc spaces are normal. Reversal of the normal cervical lordosis secondary to degenerative changes. Bone marrow signal intensity is within n ormal limits. CERVICAL CORD: Craniovertebral junction is unremarkable. The cervical cord is normal size and signal intensity. SOFT TISSUES: Unremarkable. C2-3: Small endplate osteophytes and mild disc bulging. C3-4: Mild disc bulging and small endplate osteophytes. Prominent facet joint degenerative changes a nd severe bilateral neural foraminal narrowing. Effacement of the anterior CSF space. C4-5: Small endplate osteophytes and mild disc bulging. Severe facet degenerative changes on the rig ht causing severe right neural foraminal narrowing. C5-6: Mild loss of disc height. Prominent broad-based disc osteophytes causing narrowing of the AP d imension of the central canal. CSF remains present around the posterior lateral aspects of the cord . Severe right neural foraminal narrowing. C6-7: Cbgc-qv-psllwsmv loss of disc height and broad-based disc osteophytes C7-T1: No disc herniation or bulge is identified. IMPRESSION: Degenerative disc changes and facet degenerative changes combine to produce multilevel neural foramin al narrowing greater on the right side. Mild central canal stenosis. No focal disc herniation. DATA REPOSITORY:
== END 2021-07-24 00:48 ==
PROVIDERS: PCP Emergency Medicine; Visit Provider Emergency Medicine
DX: M50.11 Cervical disc disorder with radiculopathy, high cervical region (principal); R29.898 Other symptoms and signs involving the musculoskeletal system; M48.02 Spinal stenosis, cervical region; M50.121 Cervical disc disorder at C4-C5 level with radiculopathy; M25.78 Osteophyte, vertebrae
CPT/HCPCS: 72141

== ENCOUNTER 2021-10-29 10:54 | Outpatient (CLI) | payer MEDICARE, SELFPAY ==
--- NOTE | 2021-10-29 06:00 | DI.RAD_ITS ---
Exam(s) XR PAIN CLINIC CERVICAL SP 2V EXAM: XR PAIN CLINIC CERVICAL SP 2V CLINICAL HISTORY: Dx: Cervical Spondylosis TECHNIQUE: 2D and realtime digital imaging was performed. Radiologist not present. CONTRAST MATERIAL: None. COMPARISON: No exams were available for comparison FINDINGS: Fluoroscopy was provided for pain management therapy. Please refer to procedure report or details. Cumulative dose: Kar=4.91 mGy IMPRESSION: RADIATION DOSE DELIVERED:
[2021-10-29 11:27] VITALS: BP 128/86; PULSE 75; RESP 20; TEMP 36.5; O2SAT 96
--- NOTE | 2021-10-29 12:13 | PDOC.PAIN ---
Pain Clinic Procedure Note Procedure Note Procedure Note: CERVICAL MEDIAL BRANCH BLOCKS [place] has been referred to the [facility] for cervical medial branch blocks. COMMENTS: I previously evaluated him in the clinic on 09/09/21. DX: Cervical spondylosis without myelopathy Pre-procedure pain VAS = 9/10 Yong was interviewed and the medical record reviewed. There were no medical, pharmacologic, radiographic or other structural contraindications to attempting fluoroscopically guided local anesthetic cervical medial branch blocks. Risks and expected side effects as well as potential benefit of the procedure were reviewed with Yong, and Yong's voiced concerns addressed. The printed consent form was signed and witnessed. Standard time-out procedure was performed. Yongwas placed in the Right lateral decubitus position on the fluoroscopy table and automated blood pressure cuff and pulse oximeter applied. The skin entry points for approaching the anatomic target points of the segmental medial branches ofLeft C2, C3, C4, and C5 were identified with fluoroscopy and marked. Following thorough Chlorhexadine preparation of the skin and draping and 1% lidocaine infiltration of the skin entry points and subcutaneous tissues, a 25 gauge spinal needle was placed under fluoroscopic guidance down on to the target point for each respective segmental medial branch. Position was confirmed in A/P and leteral views with 0.25ml of omnipaque 240 injected at each level. At each point 0.3ml 0.5% bupivicaine was injected after negative aspiration of blood. Boubacar vital signs were stable throughout the procedure and were as recorded in the docflowsheet by the nursing staff. Follow up plans and appointments were discussed with Yong. Yong was instructed to keep careful note of how the usual pain was modified by these injections. Specifically, the patient was asked to keep a pain diary for the next 24 hours using a numeric pain scale of 0-10 and report these results at the follow-up visit. Post procedure instruction was given as documented in the nursing documentation and having met discharge criteria, Boubacar was discharged from the [facility]. Based on the medial branches blocked today, if they patient has adequate relief and we are able to proceed to radiofrequency ablation, the treatment should result in the denervation of the left C2-C3, C3-C4, and C4-C5 FACET JOINTS. We would expect to denervate a total of 3 facets during the radiofrequency ablation. COMMENTS: He will call back with his 1-4 hour post-procedure pain levels for the left side of the neck. Post-procedure pain VAS = 0/10. Bud Duran DO, MPH [facility] CC: Tre Babcock
[2021-10-29] MEDS: Omnipaque 240 MG/ML 50 ML BTL IJ (12:31)
[2021-10-29] MEDS: Bupivacaine 0.5% Pres-Free 10 ML VIAL IJ (12:31)
[2021-10-29 12:32] VITALS: BP 104/82; PULSE 77; RESP 21; O2SAT 95
== END 2021-10-29 10:55 | disposition home or self-care (01) ==
LOC: PC 10:55
PROVIDERS: PCP Family Medicine; Visit Provider Preventive Medicine Occupational Medicine
DX: M47.812 Spondylosis without myelopathy or radiculopathy, cervical region (principal)
CPT/HCPCS: 64490; 64491; 64492; 72040; Q9967

== ENCOUNTER 2021-12-11 00:12 | Outpatient (CLI) | payer MEDICARE, SELFPAY ==
--- NOTE | 2021-12-11 06:45 | DI.US_ITS ---
Exam(s) US AAA SCREENING EXAM: US AAA SCREENING CLINICAL HISTORY: AAA screen-prior smoker,z13,6,z87.891 COMPARISON: CT CT ABDOMEN PELVIS W from 09/30/2018 FINDINGS: Abdominal Aorta: Proximal: 2.9 x 2.9 cm Mid: 2.3 x 2.2 cm Distal: 2.1 x 2.2 cm Iliac's: Right: 1.0 x 0.9 cm Left: 1.1 x 1.0 cm No significant atherosclerotic disease is seen. IMPRESSION: Ectatic proximal abdominal aorta. DATA REPOSITORY:
--- NOTE | 2021-12-11 09:05 | DI.CTLCSR_ITS ---
Exam(s) CT CHEST LUNG CANCER SCREEN EXAM: CT CHEST LUNG CANCER SCREEN CLINICAL HISTORY: Screening for lung cancer,former smoker, z87.891 TECHNIQUE: Imaging Protocol: Axial computed tomography images with coronal and sagittal reformatted images were created and reviewed COMPARISON: CT CT ABDOMEN PELVIS W from 09/30/[address] NECK CHEST W from 03/27/[address] SPINE CERVICAL WO CONTRAST from 03/11/2021 FINDINGS: Tracheobronchial tree: Patent where visualized. Pulmonary parenchyma: No consolidation or dominant measurable mass. Centrilobular and paraseptal emph ysematous changes are present. There is a 3 mm nodule associated with the left major fissure. Lung Nodules: None. Mediastinum and Elif: No dominant adenopathy or fluid collection. Postsurgical changes are seen at th e gastroesophageal junction. Thyroid gland: Unremarkable. Lymph nodes: Unremarkable. Pleura: No effusion or pneumothorax. Heart: The heart is not dilated. Coronary artery calcifications are present. No pericardial effusion . Aorta: Thoracic aorta non-dilated.Mild atherosclerosis. Upper abdomen: Diffuse fatty infiltration of the liver. There is a stable cyst in the superior pole of the left kidney. Soft Tissues: Unremarkable. Bones: Within normal limits. Postsurgical changes in the left shoulder. IMPRESSION: 1. 3 mm perifissural nodule. 2. No other pulmonary nodules. Lung RADS Cat 2 - Benign Appearance / Behavior: Nodules with a very low likelihood of becoming a clin ically active cancer due to size or lack of growth Lung-RADS 1.0 CATEGORIES: Category 0 - Prior chest CT exam(s) being located for comparison. Category 1 - Annual screening in 12 months. No nodules or definitely benign nodules. Category 2 - Annual screening in 12 months. Benign appearance. Nodules with low likelihood of becomin g active cancer. Category 3 - 6-month follow-up. Probably benign. Short-term follow-up suggested. Nodules with low lik elihood of becoming active cancer. Category 4A - 3-month follow-up and CT/PET if >8 mm in size. Suspicious finding. Findings which requi re additional testing. Category 4B - Findings which require additional testing and tissue sampling. Suspicious finding. Category 4X - Category 3 or 4 nodules with additional features or imaging findings that increases the suspicion of malignancy. Modifier S- Potentially clinically significant finding. (Non lung cancer) RADIATION DOSE DELIVERED: 92.71mGy.cm Total DLP !Error CTDIvol 92.71mGy.cm Total DLP 2.21mGy CTDIvol DATA REPOSITORY: All CT scans at this facility are submitted to the National Radiology Data Registry (NRDR) Dose Index Registry (DIR) with the [employer] (ACR). RADIATION OPTIMIZATION: All CT scans at this facility use at least one of these dose optimization te chniques: automated exposure control; mA and/or kV adjustment per patient size (includes targeted exa ms where dose is matched to clinical indication); or iterative reconstruction.
== END 2021-12-11 00:32 ==
PROVIDERS: PCP Family Medicine; Visit Provider Family Medicine
DX: Z87.891 Personal history of nicotine dependence (principal); Z13.6 Encounter for screening for cardiovascular disorders; Z12.2 Encounter for screening for malignant neoplasm of respiratory organs; R91.8 Other nonspecific abnormal finding of lung field; R91.1 Solitary pulmonary nodule; I77.811 Abdominal aortic ectasia
CPT/HCPCS: 71271; 76706

== ENCOUNTER 2021-12-11 03:20 | Outpatient (CLI) | payer MEDICARE, SELFPAY ==
[2021-12-11 09:38] LABS: COMMENT (LAB VIEW ONLY) 173.05 mg/dL
[2021-12-11 09:47] LABS: Hemoglobin A1C 8.1 % (<5.7)
[2021-12-11 09:51] LABS: ALT 46 U/L (16-63); Anion Gap 6.5 mmol/L (3-11); BUN 11 mg/dL (7-18); CO2 29.5 mmol/L (21.0-32.0); CREATININE 0.8 mg/dL (0.70-1.30); Calcium 8.5 mg/dL (8.5-10.1); Calculated LDL 55 mg/dL (<100); Chloride 105 mmol/L (98-107); Cholesterol 132 mg/dL (<200); Glucose 137 mg/dL (74-106); HDL Cholesterol 35 mg/dL (40-60); Potassium 4.7 mmol/L (3.5-5.1); Sodium 141 mmol/L (136-145); Triglyceride 212 mg/dL (<150)
== END 2021-12-11 03:21 | disposition home or self-care (01) ==
LOC: LBO 03:20
PROVIDERS: PCP Family Medicine; Visit Provider Family Medicine
DX: E11.65 Type 2 diabetes mellitus with hyperglycemia (principal); E78.5 Hyperlipidemia, unspecified; I10 Essential (primary) hypertension; Z13.6 Encounter for screening for cardiovascular disorders
CPT/HCPCS: 36415; 71271; 76706; 80048; 80061; 82043; 82570; 83036; 84460

== ENCOUNTER 2022-04-21 13:06 | Outpatient (CLI) | payer MEDICARE, SELFPAY ==
--- NOTE | 2022-04-21 12:59 | DI.RAD_ITS ---
Exam(s) XR SHOULDER LT COMPLETE 2+V EXAM: XR SHOULDER LT COMPLETE 2+V CLINICAL HISTORY: left shoulder pain. TECHNIQUE: 2D digital imaging was performed. COMPARISON: CR RIGHT SHOULDER COMPLETE from 06/10/[address] CHEST LUNG CANCER SCREEN from 12/11/2021 FINDINGS: Two views No evidence of fracture or dislocation. No obvious degenerative changes in the glenohumeral joint. However, there is a calcific density in the subacromial space noted which measures 6 x 5 millimeters. Consistent with calcific tendinitis-bursitis. No calcifications seen in the soft tissues lateral t o the greater tuberosity nor elsewhere. Bone density normal. No osseous lesions. IMPRESSION: Calcific rotator cuff tendinitis-bursitis DATA REPOSITORY: RADIATION DOSE DELIVERED:
== END 2022-04-21 13:07 | disposition home or self-care (01) ==
LOC: DIORS 13:06
PROVIDERS: PCP Family Medicine; Referring Provider Family Medicine; Visit Provider Student in an Organized Health Care Education/Training Program
DX: M75.22 Bicipital tendinitis, left shoulder; M75.102 Unspecified rotator cuff tear or rupture of left shoulder, not specified as traumatic; E11.65 Type 2 diabetes mellitus with hyperglycemia
CPT/HCPCS: 99204; 99214; 73030

== ENCOUNTER → 2022-05-12 01:23 | Outpatient (CLI) | payer MEDICARE, SELFPAY ==
--- NOTE | 2022-05-12 08:15 | DI.MRI_ITS ---
Exam(s) MR UPPER JOINT LT WO EXAM: MR UPPER JOINT LT WO CLINICAL HISTORY: L SHOULDER PAIN, tendinitis, lt rotator cuff tear, m75.22,m75.102. TECHNIQUE: Multiplanar multisequence MRI was performed. COMPARISON: None. FINDINGS: The exam is mildly limited by patient motion. Bones: There is no fracture or contusion pattern. There is spurring at the tip of the acromion. Th ere are degenerative changes at the greater and lesser tuberosities. The acromioclavicular joint is normal. Glenohumeral joint: Minimal amount of fluid. Rotator Cuff: The supraspinatus tendon shows a full-thickness tear with retraction to the level of th e AC joint anteriorly. The posterior portion of the tendon shows edema which could indicate partial tear versus tendinitis. There is mild supraspinatus atrophy. Infraspinatus tendon is intact. The subscapularis tendon shows some edema near the lesser tuberosity. The teres minor is normal. Labrum and biceps anchor: The biceps tendon is located. There is some edema in the near the lesser t uberosity. The anchor is well maintained. The labrum shows no gross evidence of tear. There is a small amount of fluid in the subacromial subdeltoid bursa and subcoracoid bursa. There is a lipoma seen in the infra glenoid region measuring 4.7 transverse by 3.1 cephalo caudad by 3.7 cm A P. IMPRESSION: Full-thickness tear of the traction of the anterior portion of the supraspinatus tendon. Tendinosis versus partial tearing of the biceps and subscapularis tendons near the lesser tuberosity. 4.7 centimeter lipoma in the infra glenoid region. No suspicious features. DATA REPOSITORY:
== END ==
PROVIDERS: PCP Family Medicine; Visit Provider Student in an Organized Health Care Education/Training Program
DX: E11.65 Type 2 diabetes mellitus with hyperglycemia (principal); M75.102 Unspecified rotator cuff tear or rupture of left shoulder, not specified as traumatic; M75.22 Bicipital tendinitis, left shoulder
CPT/HCPCS: 73221

== ENCOUNTER → 2022-05-19 11:01 | Outpatient (BNVA) | payer MEDICARE, SELFPAY | PROVIDERS: PCP Family Medicine; Referring Provider Family Medicine; Visit Provider Student in an Organized Health Care Education/Training Program | DX: M75.22 Bicipital tendinitis, left shoulder (principal); M75.102 Unspecified rotator cuff tear or rupture of left shoulder, not specified as traumatic | CPT/HCPCS: 99214 ==

== ENCOUNTER → 2022-06-29 00:41 | Outpatient (CLI) | payer MEDICARE, SELFPAY ==
--- NOTE | 2022-06-29 07:00 | DI.NM_ITS ---
APPROVED REPORT Exam: Exercise Treadmill Patient Location: Out-Patient Room/Bed: Stress Nurse: Kady Landin RN Ordering Provider:KIKI KULKARNI, Contact Number: [phone] BMI: 31.00 Baseline Rhythm: Sinus Rhythm Indications: CHEST PAIN Medical History Medical History: COPD, Depression, DM II, HLD, HTN, Former smoker, PTSD, ETOH Abuse, Sleep apnea Cardiac Medications: Pravastatin, Lisinopril, Furosemide, Jardiance, Nicotine gum, Insulin glargine, Allergies: Metformin Cardiac Risk Factors: HTN, Hyperlipidemia, DM, Smoking (former), COPD, CVD Previous Cardiac Procedures: None Pretest Chest Pain Characteristics: None Exercise History: Sedentary Physical Disabilities: None Lung Sounds: Clear to auscultation, diminished Heart Sounds: Regular Stress Test Details Test: Exercise stress testing was performed using a Juan Carlos protocol. Nuclear Acquisition: Rest Tc-99m/Stress Tc-99m 1 day Rest Isotope: Tc-99m Sestamibi. Dose: 10.5 Date: 06/29/2022 Injection Time: 924 Stress Isotope: Tc-99m Sestamibi. Dose: 33.0 Date: 1105 HR Resting HR Supine: 59 bpm Max Heart Rate (APMHR): 151.499550 bpm Resting HR Standin bpm Target HR (85% APMHR): 128.465852 bpm Max HR Achieved: 146 bpm % of APMHR: 96.69 Recovery HR: 76 bpm HR response to stress: Normal HR response to stress BP Resting BP Supine: 140/92 mmHg Resting BP Standin/88 mmHg Max BP: 218/98 mmHg Recovery BP: 158/88 mmHg BP response to stress: Normal blood pressure response to stress. ECG Resting ECG: Sinus Rhythm Ectopy: occasional PVC Stress ECG: Sinus Tachycardia ST Change: No significant ST segment changes noted, , No significant ST segment changes noted, Horizo ntal ST depression, Upsloping ST depression Arrhythmia: occasional PVC Recovery ECG: Sinus Rhythm Recovery ST Change: No significant ST segment changes noted Recovery Arrhythmia: occasional PVC Clinical Reason for Termination: Dyspnea, Fatigue Stress Symptoms: Chest pain, General Fatigue, Headache Exercise duration: 05 min59 sec Highest Stage Reached: Stage 2: 2.5 mph at 12% grade. Exercise capacity: 7.05 METs Mcghee Treadmill Score: 5.2 Rate Pressure Product: 71427 Stress ECG Conclusion 1. Resting electrocardiogram was within normal limits 2. Patient exercised on the Juan Carlos protocol and completed a workload of 7 METS 3. Normal heart rate and blood pressure response to exercise. Patient achieved 96% of predicted hear t rate for age 4. Electrocardiographic portion of the test was negative for myocardial ischemia 5. Occasional PVCs were seen 6. See MPI report Mcghee Treadmill Score is 5.2 which is Low risk. Stress Test Summary STAGE Time (mins) Speed (mph) Grade (%) HR BP SpO2 SYMPTOMS METS Supine 59 140/92 Standing 66 144/88 95% 1 3 1.7 10 119 158/94 4.5 2 6 2.5 12 143 c/o moderate SOB 7 1 min recovery 117 218/98 92% 3 min recovery 82 190/84 SOB resolved 6 min recovery 76 158/88 MPI Conclusion Normal myocardial perfusion without evidence of ischemia or prior infarction EF 51%, normal wall motion Radiologist Interpretation Radiologist agrees with Bee Farmer's Interpretation. Radiologist Interpretation by: Jules Hermosillo MD Interpretation Date/Time: 06/29/2022 17:27:01
== END ==
PROVIDERS: PCP Family Medicine; Visit Provider Family Medicine
DX: R07.9 Chest pain, unspecified (principal)
CPT/HCPCS: 78452; 93016; 93018; 93017

== ENCOUNTER → 2022-08-24 09:05 | Outpatient (BNVA) | payer MEDICARE, SELFPAY | PROVIDERS: PCP Family Medicine; Referring Provider Family Medicine; Visit Provider Student in an Organized Health Care Education/Training Program | DX: M75.22 Bicipital tendinitis, left shoulder (principal); M75.102 Unspecified rotator cuff tear or rupture of left shoulder, not specified as traumatic; E11.65 Type 2 diabetes mellitus with hyperglycemia | CPT/HCPCS: 99214 ==

== ENCOUNTER 2022-11-10 01:45 | Outpatient (CLI) | payer MEDICARE, SELFPAY ==
--- NOTE | 2022-11-10 07:30 | DI.CT_ITS ---
Exam(s) CT UPPER EXTREMITY LT WO EXAM: CT UPPER EXTREMITY LT WO CLINICAL HISTORY: Surgery planning,lt rotator cuff tear, m75.102 TECHNIQUE: Imaging Protocol: Axial computed tomography images with coronal and sagittal reformatted images were created and reviewed. CONTRAST MATERIAL: Non con COMPARISON: CR XR SHOULDER LT COMPLETE 2+V from 04/21/2022 FINDINGS: Bones: Spurring is noted at the undersurface of the acromion. There is mild narrowing and spurring a t the glenohumeral joint. There are subchondral cysts, small in the humeral head. Soft Tissues: Emphysematous changes are noted in the visualized portions of the lungs. Intramuscula r lipoma seen in the subscapularis muscle. It measures 5.1 x 3.3 by 3.3 cm. There is no significant muscle atrophy. IMPRESSION: Degenerative changes of the glenohumeral joint. Intramuscular lipoma in the subscapularis muscle. RADIATION DOSE DELIVERED: 898.3mGy.cm Total DLP DATA REPOSITORY: All CT scans at this facility are submitted to the National Radiology Data Registry (NRDR) Dose Index Registry (DIR) with the [employer] (ACR). RADIATION OPTIMIZATION: All CT scans at this facility use at least one of these dose optimization te chniques: automated exposure control; mA and/or kV adjustment per patient size (includes targeted exa ms where dose is matched to clinical indication); or iterative reconstruction.
== END 2022-11-10 02:05 ==
LOC: DI 01:46
PROVIDERS: PCP Family Medicine; Visit Provider Student in an Organized Health Care Education/Training Program
DX: M75.102 Unspecified rotator cuff tear or rupture of left shoulder, not specified as traumatic (principal); M19.012 Primary osteoarthritis, left shoulder; D17.79 Benign lipomatous neoplasm of other sites
CPT/HCPCS: 73200

== ENCOUNTER → 2022-11-30 09:32 | Outpatient (BNVA) | payer MEDICARE, SELFPAY | PROVIDERS: PCP Family Medicine; Referring Provider Family Medicine; Visit Provider Student in an Organized Health Care Education/Training Program | DX: M75.22 Bicipital tendinitis, left shoulder (principal); M75.102 Unspecified rotator cuff tear or rupture of left shoulder, not specified as traumatic | CPT/HCPCS: 99214 ==

== ENCOUNTER 2022-12-03 08:32 | Day surgery (SDC) | payer MEDICARE, SELFPAY ==
[2022-12-03] VITALS (13 sets, daily range): BP systolic 78–126; BP diastolic 31–93; PULSE 66–76; RESP 13–26; TEMP 36.4–36.8; O2SAT 93–98; BMI 30.8
[2022-12-03] MEDS: Lactated Ringers 1,000 ML 30 ML IV (11:09)
--- NOTE | 2022-12-03 11:12 | W.ANESPRE ---
General Info Date of Service Date Performed: 12/03/22 Height: 5 ft 9 in Weight: 94.7 kg Body Mass Index (BMI): 30.8 Surgical Procedure: Operation Date: 12/03/22 11:25 Proposed Procedure Side Surgeon p Shoulder Rotator Cuff Arthroscopic w/Extensive Debridement, Bicep Tenotomy vs Tenodesis, Subacromial Decompression Left Chinedu Gamboa MD Meds Allergies and Home Medications Allergies Allergy/AdvReac Type Severity Reaction Status Date / Time metformin AdvReac Intermediate diarrhea Verified 12/03/22 09:54 trazodone AdvReac Dizziness/L Verified 12/03/22 09:54 ighthead Home Medication Medication Instructions Recorded ketoconazole 2 % topical cream 1 applic topical BID #30 grams 05/26/21 blood sugar diagnostic (Blood #180 strips 08/14/21 Glucose Test strips) triamcinolone acetonide 0.1 % 1 applic topical BID #15 grams 04/21/22 topical cream pen needle,diabetic dual safty 30 #180 ea 05/05/22 gauge x 3/16 (BD AutoShield Duo Pen Needle) blood sugar diagnostic (OneTouch #180 ea 06/01/22 Verio test strips) blood-glucose meter (OneTouch #1 ea 06/01/22 Verio Flex Meter) empagliflozin 25 mg tablet 25 mg PO QAM #90 tabs 06/01/22 (Jardiance) lancets 28 gauge #180 ea 06/01/22 trazodone 50 mg tablet 50 mg PO DAILY #90 tabs 06/01/22 lancets 33 gauge (BD Ultra Fine #100 ea 07/26/22 Lancets) insulin glargine 100 unit/mL (3 30 unit (0.3 mL) subcut BID #15 mL 08/23/22 mL) subcutaneous pen (Lantus Solostar U-100 Insulin) atorvastatin 10 mg tablet 10 mg PO DAILY #90 tabs 08/24/22 nicotine (polacrilex) 4 mg gum 4 mg PO Q2H PRN #110 ea 09/29/22 (Nicorette) furosemide 20 mg tablet (Lasix) 20 mg PO DAILY #90 tabs 11/24/22 gabapentin 300 mg capsule 600 mg PO HS #180 tab-caps 11/24/22 lisinopril 20 mg tablet 20 mg PO DAILY #90 tabs 11/24/22 sertraline 100 mg tablet 100 mg PO DAILY #90 tab-caps 11/24/22 pravastatin 20 mg tablet 20 mg PO DAILY 11/30/22 dulaglutide 1.5 mg/0.5 mL 10.5 mg subcut QWEEK 12/03/22 [facility] Current Visit Medications: Current Medications Generic Name Dose Route Start Last Admin Trade Name Freq PRN Reason Stop Dose Admin Ringer's Solution 1,000 mls @ 30 mls/hr 12/03/22 06:00 12/03/22 11:09 IV 01/01/23 23:59 30 mls/hr INFUSION GRIS Administration Cefazolin Sodium/Dextrose 2 gm in 50 mls @ 100 mls/hr 12/03/22 06:00 Ancef Duplex IVPB 12/03/22 16:00 PREOP GRIS IV Miscellaneous Supplies 1 each 12/03/22 06:00 Iv Access IV 01/01/23 23:59 DIRECTED GRIS Sodium Chloride 0 ml 12/03/22 06:00 Normal Saline Flush 10 Ml Syr IV 01/01/23 23:59 PRN PRN Sodium Chloride 0 ml 12/03/22 06:00 Normal Saline 10 Ml Vial IJ 01/01/23 23:59 DIRECTED PRN Sterile Water 0 ml 12/03/22 06:00 Water,Injection,Sterile 10 Ml Vial IJ 01/01/23 23:59 DIRECTED PRN PFSH Active Problems Active Problems: Problem Status Onset Code Nail dystrophy L60.3 Chronic insomnia F51.04 Rash R21 Onychomycosis B35.1 Tendinitis of long head of biceps brachii of left shoulder M75.22 Left rotator cuff tear M75.102 Personal history of nicotine dependence Z87.891 COPD (chronic obstructive pulmonary disease) J44.9 Cervical spondylosis without myelopathy M47.812 Cervical radiculopathy M54.12 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 Fracture of pelvis S32.9XXA Diverticulitis of colon K57.32 Type II diabetes mellitus, uncontrolled E11.65 Squamous cell carcinoma in situ of skin 09/28/13 D04.9 Smoker F17.200 Serrated adenoma of colon 09/09/17 D12.6 Restless legs G25.81 Raynaud's disease I73.00 Polyp of colon 03/03/12 K63.5 Peptic reflux disease K21.9 Intention tremor G25.2 Hyperlipidemia E78.5 Hemorrhoids K64.9 Essential hypertension 09/27/13 I10 Depressive disorder F32.9 Chronic obstructive lung disease J44.9 Carpal tunnel syndrome G56.00 Alcohol abuse F10.10 Abnormal pupillary function 03/06/13 H57.00 Medical History Medical History COPD (chronic obstructive pulmonary disease) Depression Diabetes mellitus type 2 in obese Hyperlipidemia Hypertension Sessile colonic polyp (~09/2017) Tobacco abuse disorder Surgical History Surgical History Arthroscopy, Shoulder (~2000) Colonoscopy - MAC (09/09/17) EGD - MAC [place] Fundoplication sphincterotomy Tobacco Smoking/Tobacco Use Status: Former Tobacco Use Alcohol Alcohol Intake: former Year quit: 2004 Counseling provided: support program Details: Alcohol treatment program Substance Use Substance use: Never Substance use type: does not use Vital Signs and Lab Results Vital Signs Most Recent Vital Signs in EMR: Most Recent Vital Signs Temp Pulse Resp BP Pulse Ox 36.6 C 72 16 112/86 98 12/03/22 10:05 12/03/22 10:05 12/03/22 10:05 12/03/22 10:05 12/03/22 10:05 Point of Care Results Point of Care Results: Finger Stick Blood Glucose 104 12/03/22 10:57 Lab Results Blood Type / Crossmatch: No Data to Display Complete Blood Count: No Data to Display Complete Metabolic Panel: No Data to Display Liver Function Panel: No Data to Display Coagulation Panel: No Data to Display Cardiac Panel: No Data to Display Arterial Blood Gas: No Data to Display Venous Blood Gas: No Data to Display Pancreas Panel: No Data to Display Thyroid Panel: No Data to Display Infectious Disease: No Data to Display Blood Cultures: No Data to Display Toxicology Panel: No Data to Display Imaging and Studies Imaging and Studies Study information below may be from another EMR and interpreted by another provider. Please see original notes in EMR for more complete details. Stress Test Summary: 07/01: 7 mets, 96% HR, normal perfusion without evidence of ischemia. EF 51%. Anesthesia Assessment and Plan Anesthesia History Personal History: No History of Anesthesia Complications Family History: No Family History of Anesthesia Complications Exercise Tolerance Exercise Tolerance: Metabolic Equivalents>4 Cardiac & Pulmonary Exam Cardiac Exam: Normal S1/S2 Heart Sounds Pulmonary Exam: Clear Bilateral Breath Sounds Implantable Cardiac Device Does patient have a Pacemaker or an ICD?: No Airway Exam Known Difficult Airway: No Mallampati Class: 3 Mouth Opening: Normal (> 3cm) Thyromental Distance: Greater than 3 cm Neck Range of Motion: Limited ROM Neck Circumference: Thick Teeth Condition: Edentulous ASA Classification ASA Score: ASA 2 Emergency Case?: No NPO Status NPO Status: NPO Clears >2 hours, Solids >8 hours Anesthesia Plan Resuscitation Status: Full Code Anesthesia Technique: General Anesthesia Airway Planned: Endotracheal Tube Pain Management: Surgeon and patient request nerve block Monitors Used: Standard Monitors Preoperative Comments:: 71 yo male for shoulder. Sig PMHx: COPD (states doesn't use inhalers), ZEV (doesn't use his CPAP), DMII (a1c 6.9), cervical radiculopathy, former smoker/etoh, RLD, HTN (lisinopril, furosemide), Previous Anes: - colo with prop no issues. - mac 4 grade 1.
--- NOTE | 2022-12-03 12:28 | W.ANESNERVE ---
Nerve Block Single Injection Procedure Date and Time Date Performed: 12/03/22 Procedure Start: 12:04 Location Where Procedure Performed Procedure Location: Day Surgery Unit Reason Performed: Postoperative Analgesia Requesting Provider: Chinedu Gamboa Timeout Performed Timeout Performed: Yes Monitoring Used ECG, Blood Pressure and SpO2 Sterility Sterility: Hand Hygiene, Surgical Cap, Surgical Mask, Sterile Gloves and Chlorhexidine Sedation Given During Procedure Sedation Given (Indicate Dose Given): No Sedation given Patient Mental Status Patient Mental Status: Awake Nerve Block 1st Nerve Block: Laterality: Left Block Type: Interscalene Ultrasound Image Saved?: Yes Needle / Catheter Used: 100mm SonoPlex II Local Anesthetic Bolus (Indicate Dose Given): Lidocaine used for local infiltration of skin, Bupivacaine 0.5% Dose:: 15 mL and Exparel Dose:: 10 mL Additives (Indicate Dose Given): None Ultrasound: Sterile probe cover and gel used Nerve Stimulator: Supplement to Ultrasound use and No twitch or parasthesia noted < 0.5 mA Paresthesia: None Procedure Tolerated: No Complications Procedure Outcome: Successful Procedure Comment: technically challenging, a lot of movement with respiration, tough tissues. Performed By: Kian Solis
[2022-12-03] MEDS: ceFAZolin 2 GM/50 ML BAG IVPB (12:31)
--- NOTE | 2022-12-03 14:47 | PDOC.DSDIS_ITS ---
Date of service: 12/03/22 Time of Service: 17:00 Discharge Plan Disposition Patient Disposition: Home Condition: Stable Discharge Details Attending Provider: Chinedu Gamboa Primary Care Provider: Alex Hunter Home Meds and New Rx's Prescriptions: New naproxen 250 mg tablet 250 - 500 mg PO BID PRNQty: 40 0RF Rx Instructions: take with a meal oxycodone 5 mg tablet 5 - 10 mg PO Q4H MDD 30 mg PRN (Reason: moderate to severe pain) Qty: 18 0RF Continued Jardiance 25 mg tablet 25 mg PO QAM Qty: 90 3RF trazodone 50 mg tablet 50 mg PO DAILY Qty: 90 3RF Hold Instructions: Home Medication placed on hold at Doctor's office (DME) OneTouch Verio test strips Strip See Rx Instructions .ROUTE .MEDSUPPLY Qty: 180 8RF Rx Instructions: Testing BID As directed (DME) blood-glucose meter [OneTouch Verio Flex meter] Misc See Rx Instructions .ROUTE .MEDSUPPLY Qty: 1 2RF Rx Instructions: Test BID As directed (DME) lancets 28 gauge misc 1 ea Miscellaneous DAILY Qty: 180 4RF Rx Instructions: test once/day One touch delica triamcinolone acetonide 0.1 % cream 1 applic topical BID Qty: 15 0RF Rx Instructions: Apply to top of left foot twice daily for 7 days gabapentin 300 mg capsule 600 mg PO HS Qty: 180 3RF furosemide [Lasix] 20 mg tablet 20 mg PO DAILY Qty: 90 3RF lisinopril 20 mg tablet 20 mg PO DAILY Qty: 90 3RF sertraline 100 mg tablet 100 mg PO DAILY Qty: 90 3RF ketoconazole 2 % cream 1 applic Topical BID Qty: 30 3RF (DME) lancets [BD Ultra Fine Lancets] 33 gauge misc See Rx Instructions .Route Qty: 100 3RF Rx Instructions: TID atorvastatin 10 mg tablet 10 mg PO DAILY Qty: 90 3RF pravastatin 20 mg tablet 20 mg PO DAILY CONTOUR NEXT EZ 1 EACH EACH 1 ea Miscellaneous DAILY Qty: 90 3RF (DME) Blood Glucose Test Strip 1 ea Miscellaneous BID Qty: 180 3RF Rx Instructions: test bid (DME) BD AutoShield Duo Pen Needle 30 gauge x 3/16 needle 1 ea Miscellaneous BID Qty: 180 3RF Rx Instructions: test bid insulin glargine [Lantus Solostar U-100 Insulin] 100 unit/mL (3 mL) insulin pen 30 unit subcut BID Qty: 15 6RF nicotine (polacrilex) [Nicorette] 4 mg gum 4 mg PO Q2H PRN Qty: 110 5RF Trulicity 1.5 mg/0.5 mL pen injector 10.5 mg subcut QWEEK Discharge Instructions Additional Instructions: Surgery: Left shoulder arthroscopy with rotator cuff repair (large U- supraspinatus), biceps tenodesis, extensive debridement, and subacromial decompression. Activity: For 6 weeks, you should keep your arm at your side in a neutral position at all times except for physical therapy. Do not try to lift or raise your arm using your own muscles. You should use the sling whenever you are out of the house. You may have to adjust the abduction pillow or remove it for comfort. At home it is best to remove the sling and rest the arm on a pillow at your side or support the operative side with your other hand. You may allow the arm to dangle at your side. A physical therapy prescription will be sent electronically to begin in about 3 weeks. Prescriptions: Naproxen 250 mg take 1-2 every 12 hours with a meal as needed for moderate pain Oxycodone 5 mg take 1-2 every 4-6 hours as needed for severe pain You may use eakh-[id number] Tylenol (acetaminophen) as needed for mild pain. These pain medications may be taken all at once or in different combinations as needed. Also, recommend Colace (docusate) as a stool softener as surgery and pain medicine cause constipation. You may try [id number]-[id number] diphenhydramine (Benadryl) 25-50 mg nightly as a sleep aid Dressings: Remove shoulder bandage after 3 days. Leave the sticky Steri-Strips in place until they fall off or remove them after you shower. Cover the incisions with Band-Aids or leave them open to air. You may shower after 5 days. Follow-up: 10-[address] Gamboa You may take off the leg compression stockings this evening at home. You may also leave them on a few days longer if you have a history of leg swelling or edema. Let us know right away if you develop any redness, drainage, fevers, chest pain, or trouble breathing. Do not drink alcohol or drive for at least 24 hours after anesthesia. Please call the office during business hours with any questions or concerns. Discharge Orders Discharge Orders: Discharge Order (Routine); Ordered 12/03/22 Ordered By: Chinedu Gamboa DS: Diagnosis Discharge Diagnosis (1) Left rotator cuff tear: Status: Acute (2) Tendinitis of long head of biceps brachii of left shoulder: Status: Acute
--- NOTE | 2022-12-03 14:52 | ROE_ITS ---
Date of service: 12/03/22 Time of Service: 14:53 Operative Note Operative Note DATE OF PROCEDURE: 12/03/22 PRE-OP DIAGNOSIS: Left: 1. Rotator cuff tear 2. LHB tendinopathy 3. Impingement POST-OP DIAGNOSIS: same PROCEDURE: Left: 1. Rotator cuff repair, CPT# 48452. This involved repair of the supraspinatus using anchors and sutures to reattach the rotator cuff back to the footprint of the greater tuberosity. 2. Arthroscopic biceps tenodesis, CPT# 49305. This involved arthroscopically suturing and reattaching the long head of the biceps tendon to the proximal humerus at the superior margin of the bicipital groove with a screw at the correct tension. 3. Extensive debridement, CPT# 24543. This involved using arthroscopic hand instruments, power instruments, and radiofrequency instruments to release the long head of the biceps tendon and debride areas of labral tearing, synovitis, and chondromalacia about the humeral head and glenoid working within the glenohumeral joint anteriorly, superiorly and posteriorly. 4. Subacromial decompression with partial acromioplasty, CPT# 70153. This involved using arthroscopic power instruments and a radiofrequency wand to complete a bursectomy and smooth the undersurface of the acromion. The child center assistant was medically required in order to help assist in techniques above, which require positioning the arm, holding the arthroscope, and fadi pulating multiple instruments and sutures at the same time. This cannot be done without the help of an experienced child center assistant. SURGEON: Chinedu Gamboa SECRETARY BOOK KEEPER: Marjorie Richardson ANESTHESIA TYPE: General LMA/ETT and Primary Nerve Block Refer to Anesthesia Record ESTIMATED BLOOD LOSS: 10 PATHOLOGY: none sent COMPLICATIONS: None Patient was transported to: PACU Patient's condition: stable Implants: Arthrex: 4.75mm SwiveLocks x 1 Indications: The patient was diagnosed with the above conditions and appropriately indicated for surgical intervention. Please see complete medical record for details. Findings: Exam under anesthesia: Full range of motion, no instability Glenohumeral joint: Moderate chronic degenerative changes including lucas labral fraying, high-grade partial intra-articular biceps tearing with unstable biceps anchor, significant anterior posterior and superior synovitis. Chondromalacia central glenoid and superior humeral head. Degenerative type moderate central subscapularis tearing without significant footprint involvement. Obvious full- thickness supraspinatus tear. Intact infraspinatus. Subacromial space: Significant synovitis. Chronic fibrinous changes humeral head as well as undersurface acromion probably from early rotator cuff arthropathy. Large but isolated supraspinatus chronic retracted U-shaped tear. Procedure Description: In the operating room, general anesthesia was induced. Bilateral shoulders were examined. The patient was positioned in the beachchair position. All bony prominences were well-padded. Preoperative antibiotics were administered. The shoulder was prepped and draped in the usual sterile fashion. The correct patient, procedure, and side of the procedure were all verified prior to incision. Starting through the posterior portal a standard complete diagnostic arthroscopy was performed of the glenohumeral joint including inspection of the long head of the biceps, anterior and superior labrum, subscapularis tendon, supraspinatus and infraspinatus tendons, and axillary recess. The glenoid and humeral head cartilage as well as the posterior labrum were inspected from an anterior viewing portal. Significant findings and interventions noted above. An all-arthroscopic suprapectoral biceps tenodesis was performed through an anterior portal using a Loop N Tack method with a SutureTape FiberLink cinched around and through the tendon. The biceps was tenotomized from the labrum and repair sutures were withdrawn out the anterior cannula for later fixation with the rotator cuff superiorly. Starting through the posterior portal, the arthroscope was directed into the subacromial space. A lateral 50 yard line lateral portal was created. A combination of power instruments and a radiofrequency ablator were used to debride bursitis anteriorly, posteriorly, and laterally as well as expose and smooth bone spurring on the undersurface of the acromion. Impinging parts of the acromion on the rotator cuff were also resected to open the acromiohumeral interval. The coracoacromial ligament was preserved. The bursectomy was completed viewing laterally and working from posteriorly and the rotator cuff was thoroughly inspected with findings noted above. The rotator cuff tear was thoroughly inspected. It was mobilized as best possible, but had very limited excursion. The U-shaped tear did have some side to side reapproximation ability and then could be brought reasonably over the medial aspect of the greater tuberosity for single row repair. The greater tuberosity footprint was thoroughly debrided to optimize bone tendon healing. The margins of the tear were debrided of nonviable tissue. The self retrieving suture passer was then used to place a simple stitch converging the anterior and posterior aspects of the tear medially and secured with SMC arthroscopic knot. An additional convergence stitch was placed more laterally. There was good tissue reapproximation. The grasper then used confirmed arm rotation and coverage of rotator cuff to the greater tuberosity. 2 suture tape FiberLink's were then placed in the anterior and posterior aspects of the U-shaped tear and reduction confirmed through the rigid cannula to a single lateral row point. The biceps repair sutures was withdrawn. The undersized punch was used to localize for suture anchor placement. The rotator cuff repair sutures as well as the biceps tenodesis suture were then loaded with appropriate tension and suture anchor deployed successfully. There was good tissue coverage across the previous exposed greater tuberosity with secure fixation. There was a point more centrally posteriorly that was further secured using the knotless repair stitch from the anchor eyelet. The shoulder was drained of arthroscopic fluid. All portal sites were copiously irrigated. These incisions were closed using 3-0 Monocryl in a buried fashion and then covered with Mastisol, Steri-Strips, Xeroform, dry gauze, and ABDs. The dressings were covered and secured with Medipore tape. The operative extremity was placed into a sling for immobilization. The patient awoke from anesthesia without complication and was transferred to the recovery room in a stable condition.
--- NOTE | 2022-12-03 15:24 | W.ANESPOSTOP ---
Postoperative Evaluation Date, Time and Location Date Performed: 12/03/22 Time Performed: 15:24 Patient Location: PACU Vital Signs Most Recent Imported Vital Signs: Most Recent Vital Signs Temp Pulse Resp BP Pulse Ox 36.4 C L 66 13 78/57 L 98 12/03/22 15:06 12/03/22 15:06 12/03/22 15:06 12/03/22 15:06 12/03/22 15:06 Pain Score Most Recent Pain Score: Most Recent Pain Score Pain Level 0 12/03/22 12:26 Assessment Mental Status: Arousable with meaningful communication Airway and Respiratory Function: Patent airway with normal (patient baseline) respiratory exam Cardiovascular Function: Hemodynamically Stable Hydration Status: Adequately Hydrated Nausea & Vomiting: No Nausea or Vomiting Pain: Pain is tolerable per patient Peripheral Nerve Block: Regional nerve block not resolved at time of post operative discharge
== END 2022-12-03 17:00 | disposition home or self-care (01) ==
PROVIDERS: PCP Family Medicine; Visit Provider Student in an Organized Health Care Education/Training Program
PROC: (CPT 29827; principal; 2022-12-03 11:15)
DX: M75.102 Unspecified rotator cuff tear or rupture of left shoulder, not specified as traumatic (principal); M75.22 Bicipital tendinitis, left shoulder; M75.42 Impingement syndrome of left shoulder
CPT/HCPCS: 29827; 29828; 29823; 29826; 76942; J0131; J0690; J1100; J1885; J2370; J2405; J2704

== ENCOUNTER → 2022-12-14 07:48 | Outpatient (BNVA) | payer MEDICARE, SELFPAY | PROVIDERS: PCP Family Medicine; Referring Provider Family Medicine; Visit Provider Student in an Organized Health Care Education/Training Program | DX: Z47.89 Encounter for other orthopedic aftercare (principal); M25.512 Pain in left shoulder ==

== ENCOUNTER → 2023-01-25 09:09 | Outpatient (BNVA) | payer MEDICARE, SELFPAY | PROVIDERS: PCP Family Medicine; Referring Provider Family Medicine; Visit Provider Student in an Organized Health Care Education/Training Program | DX: Z47.89 Encounter for other orthopedic aftercare (principal); M75.22 Bicipital tendinitis, left shoulder ==

== ENCOUNTER 2023-02-02 10:12 | Outpatient (CLI) | payer MEDICARE, SELFPAY ==
[2023-02-02 12:51] LABS: CREATININE 0.9 mg/dL (0.70-1.30); Calculated LDL 64 mg/dL (<100); Cholesterol 129 mg/dL (<200); Estimated GFR 91.88 (mL/min/1.73m2); HDL Cholesterol 42 mg/dL (40-60); Triglyceride 117 mg/dL (<150)
== END 2023-02-02 10:13 | disposition home or self-care (01) ==
LOC: LOS 10:12
PROVIDERS: PCP Family Medicine; Referring Provider Family Medicine; Visit Provider Family Medicine
DX: I10 Essential (primary) hypertension (principal); E78.5 Hyperlipidemia, unspecified
CPT/HCPCS: 36415; 80061; 82565; 84132

== ENCOUNTER → 2023-03-29 09:10 | Outpatient (BNVA) | payer MEDICARE, SELFPAY | PROVIDERS: PCP Family Medicine; Referring Provider Family Medicine; Visit Provider Student in an Organized Health Care Education/Training Program | DX: M75.22 Bicipital tendinitis, left shoulder (principal); M75.102 Unspecified rotator cuff tear or rupture of left shoulder, not specified as traumatic | CPT/HCPCS: 99213 ==

== ENCOUNTER → 2023-07-06 09:56 | Outpatient (BNVA) | payer MEDICARE, SELFPAY | PROVIDERS: PCP Family Medicine; Referring Provider Family Medicine; Visit Provider Student in an Organized Health Care Education/Training Program | DX: M75.22 Bicipital tendinitis, left shoulder (principal); M75.102 Unspecified rotator cuff tear or rupture of left shoulder, not specified as traumatic | CPT/HCPCS: 99213 ==

== ENCOUNTER 2023-08-09 16:17 | Outpatient (REF) | payer MEDICARE, SELFPAY ==
[2023-08-09 18:38] LABS: COMMENT (LAB VIEW ONLY) 46.51 mg/dL; Microalb ug/mg Crea 7.3 ug/mg Cr
== END 2023-08-09 16:18 | disposition home or self-care (01) ==
LOC: LBN 16:17
PROVIDERS: PCP Family Medicine; Visit Provider Family Medicine
DX: E11.9 Type 2 diabetes mellitus without complications (principal)
CPT/HCPCS: 82043; 82570

== ENCOUNTER → 2023-08-19 02:08 | Outpatient (CLI) | payer MEDICARE, SELFPAY ==
--- NOTE | 2023-08-19 07:45 | DI.CTLCSR_ITS ---
Exam(s) CT CHEST LUNG CANCER SCREEN EXAM: CT CHEST LUNG CANCER SCREEN CLINICAL HISTORY: Screening for lung cancer,former smoker, z87.891 TECHNIQUE: Imaging Protocol: Axial computed tomography images with coronal and sagittal reformatted images were created and reviewed. Low dose screening protocol. COMPARISON: CT CT CHEST LUNG CANCER SCREEN from 12/11/2021 FINDINGS: Tracheobronchial tree: No bronchiectasis or mucus plugging.. Mediastinum and Elif: No dominant adenopathy or fluid collection. Pulmonary parenchyma: No consolidation or dominant measurable mass. Vzkx-dq-krrdsrub centrilobular an d paraseptal emphysematous changes. Lung Nodules: 3 millimeter nodule in the left major fissure again noted. Pleura: No effusion. No pneumothorax. Heart: The heart is mildly dilated. No pericardial effusion. Coronary artery calcifications are see n. Aorta: Thoracic aorta non-dilated. Upper abdomen: Postoperative changes at the GE junction. Bones: Unremarkable for age. Soft Tissues: Unremarkable. IMPRESSION: No suspicious pulmonary nodules. Lung RADS Cat 2 - Benign Appearance / Behavior: Nodules with a very low likelihood of becoming a clin ically active cancer due to size or lack of growth Lung-RADS 1.0 CATEGORIES: Category 0 - Prior chest CT exam(s) being located for comparison. Category 1 - Annual screening in 12 months. No nodules or definitely benign nodules. Category 2 - Annual screening in 12 months. Benign appearance. Nodules with low likelihood of becomin g active cancer. Category 3 - 6-month follow-up. Probably benign. Short-term follow-up suggested. Nodules with low lik elihood of becoming active cancer. Category 4A - 3-month follow-up and CT/PET if >8 mm in size. Suspicious finding. Findings which requi re additional testing. Category 4B - Findings which require additional testing and tissue sampling. Category 4X - Category 3 or 4 nodules with additional features or imaging findings that increases the suspicion of malignancy. Modifier S- Potentially clinically significant findings (non lung cancer) RADIATION DOSE DELIVERED: Total DLP DATA REPOSITORY: All CT scans at this facility are submitted to the National Radiology Data Registry (NRDR) Dose Index Registry (DIR) with the [employer] (A[employer]). RADIATION OPTIMIZATION: All CT scans at this facility use at least one of these dose optimization te chniques: automated exposure control; mA and/or kV adjustment per patient size (includes targeted exa ms where dose is matched to clinical indication); or iterative reconstruction.
== END ==
PROVIDERS: PCP Family Medicine; Visit Provider Family Medicine
DX: Z87.891 Personal history of nicotine dependence (principal); Z12.2 Encounter for screening for malignant neoplasm of respiratory organs
CPT/HCPCS: 71271

== ENCOUNTER → 2023-11-08 00:38 | Outpatient (CLI) | payer MEDICARE, SELFPAY ==
--- NOTE | 2023-11-08 14:23 | DI.RAD_ITS ---
Exam(s) XR THORACIC SPINE COMPLETE EXAM: XR THORACIC SPINE COMPLETE CLINICAL HISTORY: left upper back pain M54.9 DORSALGIA. TECHNIQUE: 2D digital imaging was performed of the thoracic spine. Four views were obtained. AP, s brian's and lateral views were obtained. COMPARISON: CR CHEST 2 VIEWS PA,LAT from 12/20/[address] CHEST LUNG CANCER SCREEN from 08/19/2023 FINDINGS: BONES: There is no fracture or destructive lesion. The vertebral bodies and posterior elements are un remarkable. Mild degenerative changes are present throughout the thoracic spine. DISKS:There is a mild right convex curvature of the thoracic spine. Interverebral disc spaces are ma intained. SOFT TISSUE: Visualized lungs are clear. IMPRESSION: Mild degenerative changes of the spine. DATA REPOSITORY: RADIATION DOSE DELIVERED:
== END ==
PROVIDERS: PCP Family Medicine; Visit Provider Family Medicine
DX: M54.9 Dorsalgia, unspecified (principal)
CPT/HCPCS: 72072

== ENCOUNTER 2023-11-23 11:28 | Outpatient (CLI) | payer MEDICARE, SELFPAY ==
[2023-11-23 12:42] LABS: Hemoglobin A1C 5.9 % (<5.7)
== END 2023-11-23 11:29 | disposition home or self-care (01) ==
LOC: LOS 11:29
PROVIDERS: PCP Family Medicine; Referring Provider Family Medicine; Visit Provider Family Medicine
DX: E11.65 Type 2 diabetes mellitus with hyperglycemia (principal)
CPT/HCPCS: 36415; 83036

== ENCOUNTER 2024-07-05 02:10 | Outpatient (CLI) | payer MEDICARE, SELFPAY ==
--- NOTE | 2024-07-05 | DI.MRI_ITS ---
Exam(s) MR UPPER JOINT LT WO/W EXAM: MR UPPER JOINT LT WO/W CLINICAL HISTORY: MASS SOFT TISSUE SHOULDER M79.89 LIPOMA SUBSCAPULARIS MUSCLE. TECHNIQUE: Multiplanar multisequence MRI of the was performed. CONTRAST MATERIAL: IV Contrast: 18 mL of Dotarem contrast administered. COMPARISON: MR MR UPPER JOINT LT WO from 05/12/2022 FINDINGS: The examination is limited due to patient motion artifact. BONES/JOINTS: No fracture or contusion pattern. Note is made of superior subluxation of the humeral h ead relative to the glenoid. Postsurgical changes are seen in the humeral head with an orthopedic an chor in place. Degenerative changes are seen at both the acromioclavicular and glenohumeral joints. MUSCULOTENDINOUS STRUCTURES: There is a full-thickness tear of the supraspinatus tendon anteriorly. Tendinosis of the subscapularis tendon is present. There is mild fatty atrophy of the supraspinatus muscle. SOFT TISSUES: There is a 4.0 AP by 4.5 transverse by 3.9 craniocaudad cm mass inferior and anterior t o the glenoid and inferior to the subscapularis muscle. The mass follows fat signal intensity on all pulse sequences. No enhancement of the mass is seen following contrast administration. The finding is most consistent with a lipoma. OTHER FINDINGS: There is fluid in the subacromial subdeltoid bursa. IMPRESSION: 1. 4.0 x 4.5 x 3.9 cm fat signal intensity mass inferior to the glenohumeral joint consistent with a lipoma. Previously, the lesion measured 4.7 cm maximally. 2. Full-thickness tear of the supraspinatus tendon anteriorly. Please see the above discussion for c omplete details. DATA REPOSITORY:
[2024-07-05] MEDS: Normal Saline Flush 10 ML SYR IVP (10:24)
[2024-07-05] MEDS: Gadoterate meglumine 20 ML SYRINGE 18 ML IVP (10:25)
== END 2024-07-05 02:30 ==
PROVIDERS: PCP Family Medicine; Visit Provider Physician Assistant
DX: M79.89 Other specified soft tissue disorders (principal)
CPT/HCPCS: 73223

== ENCOUNTER 2024-07-24 09:20 | Outpatient (CLI) | payer MEDICARE, SELFPAY ==
[2024-07-24 13:17] LABS: CREATININE 0.8 mg/dL (0.70-1.30); Calculated LDL 71 mg/dL (<100); Cholesterol 137 mg/dL (<200); Estimated GFR 94.62 (mL/min/1.73m2); HDL Cholesterol 40 mg/dL (40-60); Triglyceride 132 mg/dL (<150)
[2024-07-24 16:57] LABS: Hemoglobin A1C 6.1 % (<5.7)
== END 2024-07-24 09:21 | disposition home or self-care (01) ==
LOC: LOS 09:20
PROVIDERS: PCP Family Medicine; Referring Provider Family Medicine; Visit Provider Family Medicine
DX: I10 Essential (primary) hypertension (principal); E78.5 Hyperlipidemia, unspecified; E11.51 Type 2 diabetes mellitus with diabetic peripheral angiopathy without gangrene; I70.209 Unspecified atherosclerosis of native arteries of extremities, unspecified extremity; M25.572 Pain in left ankle and joints of left foot; E11.65 Type 2 diabetes mellitus with hyperglycemia
CPT/HCPCS: 36415; 80061; 82565; 83036; 84132

== ENCOUNTER 2024-07-31 11:49 | Emergency (ER) | payer MEDICARE, SELFPAY ==
[2024-07-31 11:52] VITALS: BP 162/98; PULSE 71; RESP 18; TEMP 36.6; O2SAT 95
--- NOTE | 2024-07-31 13:33 | W.ED.GENAD ---
Discharge Plan Disposition Patient Disposition: Home Discharge Details Clinical Impression: Foot pain, left Primary Care Provider: Alex Hunter ED Provider: Brett Cui Home Meds and New Rx's Prescriptions: No Action (DME) blood-glucose meter [OneTouch Verio Flex meter] Misc See Rx Instructions .ROUTE .MEDSUPPLY Qty: 1 2RF Rx Instructions: Test BID As directed (DME) lancets 28 gauge misc 1 ea Miscellaneous DAILY Qty: 180 4RF Rx Instructions: test once/day One touch delica triamcinolone acetonide 0.1 % cream 1 applic topical BID Qty: 15 0RF Rx Instructions: Apply to top of left foot twice daily for 7 days insulin glargine [Lantus Solostar U-100 Insulin] 100 unit/mL (3 mL) insulin pen 25 unit subcut BID Qty: 15 6RF Rx Instructions: dose reduce 01/19/24 sertraline 100 mg tablet 100 mg PO DAILY Jardiance 25 mg tablet 25 mg PO QAM Qty: 90 3RF furosemide [Lasix] 20 mg tablet 20 mg PO DAILY Qty: 90 3RF gabapentin 300 mg capsule 600 mg PO HS Qty: 180 3RF atorvastatin 10 mg tablet 10 mg PO DAILY Qty: 90 3RF ketoconazole 2 % cream 1 applic Topical BID Qty: 30 3RF lisinopril 20 mg tablet 20 mg PO DAILY Qty: 90 3RF Dayvigo 5 mg tablet 5 mg PO QHS MDD 5 mg 30 Days Qty: 30 3RF Rx Instructions: Take one 5 mg tablet by mouth 30 min before bedtime. CONTOUR NEXT EZ 1 EACH EACH 1 ea Miscellaneous DAILY Qty: 90 3RF (DME) Blood Glucose Test Strip 1 ea Miscellaneous BID Qty: 180 3RF Rx Instructions: test bid (DME) lancets [BD Ultra Fine Lancets] 33 gauge misc See Rx Instructions .Route Qty: 300 3RF Rx Instructions: TID (DME) pen needle, diabetic [BD Ultra-Fine Mini Pen Needle] 31 gauge x 3/16 needle See Rx Instructions .ROUTE .COMPLEX Qty: 200 3RF Dose Instruction: USE 2 DAILY Rx Instructions: USE 2 DAILY nicotine (polacrilex) [Nicorette] 4 mg gum 4 mg PO Q2H PRN Qty: 110 5RF meloxicam 7.5 mg tablet 7.5 mg PO DAILY Qty: 90 3RF (DME) OneTouch Verio test strips Strip See Rx Instructions .ROUTE .MEDSUPPLY Qty: 180 8RF Rx Instructions: Testing BID As directed semaglutide 1 mg/dose (4 mg/3 mL) pen injector 1 mg subcut QWEEK 28 Days Qty: 3 4RF Rx Instructions: Inject 1mg subcutaneously once weekly Discharge Instructions Additional Instructions: xray is normal, your bones look great today take tylenol as needed for foot pain follow up with podiatry as referred Discharge Data Discharge Date/Time-TO BE ENTERED AT DEPARTURE: 07/31/24 15:21 HPI General Date/Time Provider Initiated Documentation: 07/31/24 12:15. Related Data Home Medications ?Medication ?Instructions ?Recorded ?Confirmed ketoconazole 2 % topical cream 1 applic topical BID #30 grams 05/26/21 07/31/24 blood sugar diagnostic (Blood #180 strips 08/14/21 07/31/24 Glucose Test strips) triamcinolone acetonide 0.1 % 1 applic topical BID #15 grams 04/21/22 07/31/24 topical cream blood-glucose meter (OneTouch #1 ea 06/01/22 07/31/24 Verio Flex Meter) lancets 28 gauge #180 ea 06/01/22 07/31/24 lancets 33 gauge (BD Ultra Fine #300 ea 06/15/23 07/31/24 Lancets) pen needle, diabetic 31 gauge x #200 ea 07/07/23 07/31/24 3/16 (BD Ultra-Fine Mini Pen Needle) lisinopril 20 mg tablet 20 mg PO DAILY #90 tabs 08/09/23 07/31/24 insulin glargine 100 unit/mL (3 25 unit (0.25 mL) subcut BID #15 mL 01/19/24 07/31/24 mL) subcutaneous pen (Lantus Solostar U-100 Insulin) lemborexant 5 mg tablet (Dayvigo) 5 mg PO QHS 30 days #30 tabs 03/08/24 07/31/24 atorvastatin 10 mg tablet 10 mg PO DAILY #90 tabs 04/26/24 07/31/24 empagliflozin 25 mg tablet 25 mg PO QAM #90 tabs 04/26/24 07/31/24 (Jardiance) furosemide 20 mg tablet (Lasix) 20 mg PO DAILY #90 tabs 04/26/24 07/31/24 gabapentin 300 mg capsule 600 mg (2 x 300 mg) PO HS #180 04/26/24 07/31/24 tab-caps sertraline 100 mg tablet 100 mg PO DAILY 04/26/24 07/31/24 nicotine (polacrilex) 4 mg gum 4 mg PO Q2H PRN #110 ea 06/25/24 07/31/24 (Nicorette) meloxicam 7.5 mg tablet 7.5 mg PO DAILY #90 tabs 06/30/24 07/31/24 blood sugar diagnostic (OneTouch #180 ea 07/09/24 07/31/24 Verio test strips) semaglutide 1 mg/dose (4 mg/3 mL) 1 mg (0.75 mL) subcut QWEEK 28 07/10/24 07/31/24 subcutaneous pen injector days #3 mL Previous Rx's ?Medication ?Instructions ?Recorded ketoconazole 2 % topical cream 1 applic topical BID #30 grams 05/26/21 blood sugar diagnostic (Blood #180 strips 08/14/21 Glucose Test strips) triamcinolone acetonide 0.1 % 1 applic topical BID #15 grams 04/21/22 topical cream blood-glucose meter (OneTouch #1 ea 06/01/22 Verio Flex Meter) lancets 28 gauge #180 ea 06/01/22 lancets 33 gauge (BD Ultra Fine #300 ea 06/15/23 Lancets) pen needle, diabetic 31 gauge x #200 ea 07/07/23 3/16 (BD Ultra-Fine Mini Pen Needle) lisinopril 20 mg tablet 20 mg PO DAILY #90 tabs 08/09/23 insulin glargine 100 unit/mL (3 25 unit (0.25 mL) subcut BID #15 mL 01/19/24 mL) subcutaneous pen (Lantus Solostar U-100 Insulin) lemborexant 5 mg tablet (Dayvigo) 5 mg PO QHS 30 days #30 tabs 03/08/24 atorvastatin 10 mg tablet 10 mg PO DAILY #90 tabs 04/26/24 empagliflozin 25 mg tablet 25 mg PO QAM #90 tabs 04/26/24 (Jardiance) furosemide 20 mg tablet (Lasix) 20 mg PO DAILY #90 tabs 04/26/24 gabapentin 300 mg capsule 600 mg (2 x 300 mg) PO HS #180 04/26/24 tab-caps nicotine (polacrilex) 4 mg gum 4 mg PO Q2H PRN #110 ea 06/25/24 (Nicorette) meloxicam 7.5 mg tablet 7.5 mg PO DAILY #90 tabs 06/30/24 blood sugar diagnostic (OneTouch #180 ea 07/09/24 Verio test strips) semaglutide 1 mg/dose (4 mg/3 mL) 1 mg (0.75 mL) subcut QWEEK 28 07/10/24 subcutaneous pen injector days #3 mL Allergies Allergy/AdvReac Type Severity Reaction Status Date / Time metformin AdvReac Intermediate diarrhea Verified 07/31/24 11:56 trazodone AdvReac Dizziness/L Verified 07/31/24 11:56 ighthead General Stated Complaint: Orthopedic AUDRA: 4 Course Vital Signs Vital signs: Vital Signs Temperature 36.6 C 07/31/24 11:52 Pulse 71 07/31/24 11:52 Respiratory Rate 18 07/31/24 11:52 Blood Pressure 162/98 H 07/31/24 11:52 Pulse Oximetry 95 07/31/24 11:52 Temperature 36.6 C 07/31/24 11:52 Temperature Source Oral 07/31/24 11:52 Pulse 71 07/31/24 11:52 Respiratory Rate 18 07/31/24 11:52 Respiratory Effort Normal, Non-Labored 07/31/24 11:56 Blood Pressure 162/98 H 07/31/24 11:52 Blood Pressure Position Sitting 07/31/24 11:52 Pulse Oximetry 95 07/31/24 11:52 Oxygen Delivery Method Room Air 07/31/24 11:52 Oxygen Flow Rate 0 07/31/24 11:52 Medical Decision Making Quality:SDOH Health Related Social Needs: No Data to Display PFSH All Active Problems (Updated 07/31/24 @ 15:00 by Brett Cui MD) Foot pain, left (Acute) Controlled diabetes mellitus (Acute) Left ankle pain (Acute) Bilateral hip pain (Acute) Upper back pain on left side (Acute) Nail dystrophy (Acute) Chronic insomnia (Acute) Rash (Acute) Onychomycosis (Acute) Tendinitis of long head of biceps brachii of left shoulder (Acute) Left rotator cuff tear (Acute) Personal history of nicotine dependence (Acute) quit 2017, 60 pk yr hx 12/2021-CT screen-small 3 mm nodule in the left-due in 1 year COPD (chronic obstructive pulmonary disease) (Chronic) Cervical spondylosis without myelopathy (Acute) Cervical radiculopathy (Acute) [place]thin tumor (Acute) 2019, [place] [facility] [place] Fracture of pelvis (Acute) Diverticulitis of colon (Chronic) recurrent [address] [facility] 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 JACK; TUBULAR ADENOMA 09/09/17 sessile serrated adenoma and ulcer bed Peptic reflux disease (Chronic) a. HH b. duodenal scarring c. H/O hemoptysis d. Keyanna (10/13) e. dialated stricture(08/12) f. H.Pylori + and TX'd Intention tremor (Chronic) Hyperlipidemia (Chronic) Hemorrhoids (Chronic) Essential hypertension (Chronic 09/27/13) Depressive disorder (Chronic) Chronic obstructive lung disease (Chronic) Carpal tunnel syndrome (Chronic) left Alcohol abuse (Chronic) HX of quitting and restarting; DWI x4-rehab Abnormal pupillary function (Chronic 03/06/13) DIALATED UN-REACTIVE LEFT PUPIL POST ACCIDENT Medical History COPD (chronic obstructive pulmonary disease) Depression Diabetes mellitus type 2 in obese Hyperlipidemia Hypertension Sessile colonic polyp (~09/2017) Tobacco abuse disorder Surgical History Arthroscopy, Shoulder (~2000) Colonoscopy - MAC (09/09/17) EGD - MAC [place]anna Fundoplication sphincterotomy Family History Mother Essential hypertension Heart disease Father Heart disease Sister No problems noted. Sister No problems noted. Sister No problems noted. Sister No problems noted. Brother No problems noted. Brother No problems noted. Brother No problems noted. Brother No problems noted. Brother No problems noted. Social History (Updated 06/08/22 @ 12:34 by Flor Matta) Smoking/Tobacco Use Status: Former Tobacco Use tobacco type: cigarettes Quit Date: 10/10/19 Smoking risk assessment performed?: Yes Alcohol Intake: former Year quit: 2004 Counseling provided: support program Details: Alcohol treatment program Drug use: Never Substance use type: does not use Household members: other Details: SELF Pets and animals: No Current gender identity: male What is your relationship status?: How often do you talk on the phone with friends or family?: twice per week Do you belong to any clubs or organized social groups?: decline to answer Panel score (0-1 are the most socially isolated patients): 0 Duration: 15-30 minutes/day Frequency: daily Special catherine needs: No Do you feel safe at home: Yes Do you feel safe in your relationship?: Yes
[2024-07-31 13:36] VITALS: BP 122/80; PULSE 79; RESP 18; O2SAT 99
--- NOTE | 2024-07-31 14:15 | DI.RAD_ITS ---
Exam(s) XR FOOT LT COMPLETE EXAM: XR FOOT LT COMPLETE CLINICAL HISTORY: left foot pain. TECHNIQUE: 2D digital imaging was performed of the left foot. Three images were obtained. AP, obli que and lateral views were obtained. COMPARISON: No exams were available for comparison FINDINGS: BONES: No acute fracture is present. No bony destructive lesion is seen. JOINTS: No dislocation present. SOFT TISSUE: Normal. IMPRESSION: Unremarkable radiographs of the left foot. DATA REPOSITORY: RADIATION DOSE DELIVERED:
--- NOTE | 2024-07-31 19:04 | W.ED.GENAD ---
Discharge Plan Disposition Patient Disposition: Home Discharge Details Clinical Impression: Foot pain, left Primary Care Provider: Alex Hunter ED Provider: Brett Cui Home Meds and New Rx's Prescriptions: No Action (DME) blood-glucose meter [OneTouch Verio Flex meter] Misc See Rx Instructions .ROUTE .MEDSUPPLY Qty: 1 2RF Rx Instructions: Test BID As directed (DME) lancets 28 gauge misc 1 ea Miscellaneous DAILY Qty: 180 4RF Rx Instructions: test once/day One touch delica triamcinolone acetonide 0.1 % cream 1 applic topical BID Qty: 15 0RF Rx Instructions: Apply to top of left foot twice daily for 7 days insulin glargine [Lantus Solostar U-100 Insulin] 100 unit/mL (3 mL) insulin pen 25 unit subcut BID Qty: 15 6RF Rx Instructions: dose reduce 01/19/24 sertraline 100 mg tablet 100 mg PO DAILY Jardiance 25 mg tablet 25 mg PO QAM Qty: 90 3RF furosemide [Lasix] 20 mg tablet 20 mg PO DAILY Qty: 90 3RF gabapentin 300 mg capsule 600 mg PO HS Qty: 180 3RF atorvastatin 10 mg tablet 10 mg PO DAILY Qty: 90 3RF ketoconazole 2 % cream 1 applic Topical BID Qty: 30 3RF lisinopril 20 mg tablet 20 mg PO DAILY Qty: 90 3RF Dayvigo 5 mg tablet 5 mg PO QHS MDD 5 mg 30 Days Qty: 30 3RF Rx Instructions: Take one 5 mg tablet by mouth 30 min before bedtime. CONTOUR NEXT EZ 1 EACH EACH 1 ea Miscellaneous DAILY Qty: 90 3RF (DME) Blood Glucose Test Strip 1 ea Miscellaneous BID Qty: 180 3RF Rx Instructions: test bid (DME) lancets [BD Ultra Fine Lancets] 33 gauge misc See Rx Instructions .Route Qty: 300 3RF Rx Instructions: TID (DME) pen needle, diabetic [BD Ultra-Fine Mini Pen Needle] 31 gauge x 3/16 needle See Rx Instructions .ROUTE .COMPLEX Qty: 200 3RF Dose Instruction: USE 2 DAILY Rx Instructions: USE 2 DAILY nicotine (polacrilex) [Nicorette] 4 mg gum 4 mg PO Q2H PRN Qty: 110 5RF meloxicam 7.5 mg tablet 7.5 mg PO DAILY Qty: 90 3RF (DME) OneTouch Verio test strips Strip See Rx Instructions .ROUTE .MEDSUPPLY Qty: 180 8RF Rx Instructions: Testing BID As directed semaglutide 1 mg/dose (4 mg/3 mL) pen injector 1 mg subcut QWEEK 28 Days Qty: 3 4RF Rx Instructions: Inject 1mg subcutaneously once weekly Discharge Instructions Additional Instructions: xray is normal, your bones look great today take tylenol as needed for foot pain follow up with podiatry as referred Discharge Data Discharge Date/Time-TO BE ENTERED AT DEPARTURE: 07/31/24 15:21 HPI General Date/Time Provider Initiated Documentation: 07/31/24 12:15. Limitations to Documentation: no limitations. Information obtained by: patient. HPI Narrative: 73-year-old gentleman with past medical history including diabetes, COPD presents for evaluation of left foot pain. He reports that the pain is located on the outside of the left foot, worse when he turns his foot. Does not necessarily hurt to walk or stand on it. Denies any trauma. Reports that he did see his doctor about this, and was referred to podiatry but has not yet seen them. Denies any wounds or skin changes. Reports that he has back pain, but it is not associated with the foot pain. He has always had back pain and has had physical therapy for it and it gets better. He only has back pain in the morning when he wakes up in the stiffness works itself out. Related Data Home Medications ?Medication ?Instructions ?Recorded ?Confirmed ketoconazole 2 % topical cream 1 applic topical BID #30 grams 05/26/21 07/31/24 blood sugar diagnostic (Blood #180 strips 08/14/21 07/31/24 Glucose Test strips) triamcinolone acetonide 0.1 % 1 applic topical BID #15 grams 04/21/22 07/31/24 topical cream blood-glucose meter (OneTouch #1 ea 06/01/22 07/31/24 Verio Flex Meter) lancets 28 gauge #180 ea 06/01/22 07/31/24 lancets 33 gauge (BD Ultra Fine #300 ea 06/15/23 07/31/24 Lancets) pen needle, diabetic 31 gauge x #200 ea 07/07/23 07/31/24 3/16 (BD Ultra-Fine Mini Pen Needle) lisinopril 20 mg tablet 20 mg PO DAILY #90 tabs 08/09/23 07/31/24 insulin glargine 100 unit/mL (3 25 unit (0.25 mL) subcut BID #15 mL 01/19/24 07/31/24 mL) subcutaneous pen (Lantus Solostar U-100 Insulin) lemborexant 5 mg tablet (Dayvigo) 5 mg PO QHS 30 days #30 tabs 03/08/24 07/31/24 atorvastatin 10 mg tablet 10 mg PO DAILY #90 tabs 04/26/24 07/31/24 empagliflozin 25 mg tablet 25 mg PO QAM #90 tabs 04/26/24 07/31/24 (Jardiance) furosemide 20 mg tablet (Lasix) 20 mg PO DAILY #90 tabs 04/26/24 07/31/24 gabapentin 300 mg capsule 600 mg (2 x 300 mg) PO HS #180 04/26/24 07/31/24 tab-caps sertraline 100 mg tablet 100 mg PO DAILY 04/26/24 07/31/24 nicotine (polacrilex) 4 mg gum 4 mg PO Q2H PRN #110 ea 06/25/24 07/31/24 (Nicorette) meloxicam 7.5 mg tablet 7.5 mg PO DAILY #90 tabs 06/30/24 07/31/24 blood sugar diagnostic (OneTouch #180 ea 07/09/24 07/31/24 Verio test strips) semaglutide 1 mg/dose (4 mg/3 mL) 1 mg (0.75 mL) subcut QWEEK 28 07/10/24 07/31/24 subcutaneous pen injector days #3 mL Previous Rx's ?Medication ?Instructions ?Recorded ketoconazole 2 % topical cream 1 applic topical BID #30 grams 05/26/21 blood sugar diagnostic (Blood #180 strips 08/14/21 Glucose Test strips) triamcinolone acetonide 0.1 % 1 applic topical BID #15 grams 04/21/22 topical cream blood-glucose meter (OneTouch #1 ea 06/01/22 Verio Flex Meter) lancets 28 gauge #180 ea 06/01/22 lancets 33 gauge (BD Ultra Fine #300 ea 06/15/23 Lancets) pen needle, diabetic 31 gauge x #200 ea 07/07/23 3/16 (BD Ultra-Fine Mini Pen Needle) lisinopril 20 mg tablet 20 mg PO DAILY #90 tabs 08/09/23 insulin glargine 100 unit/mL (3 25 unit (0.25 mL) subcut BID #15 mL 01/19/24 mL) subcutaneous pen (Lantus Solostar U-100 Insulin) lemborexant 5 mg tablet (Dayvigo) 5 mg PO QHS 30 days #30 tabs 03/08/24 atorvastatin 10 mg tablet 10 mg PO DAILY #90 tabs 04/26/24 empagliflozin 25 mg tablet 25 mg PO QAM #90 tabs 04/26/24 (Jardiance) furosemide 20 mg tablet (Lasix) 20 mg PO DAILY #90 tabs 04/26/24 gabapentin 300 mg capsule 600 mg (2 x 300 mg) PO HS #180 04/26/24 tab-caps nicotine (polacrilex) 4 mg gum 4 mg PO Q2H PRN #110 ea 06/25/24 (Nicorette) meloxicam 7.5 mg tablet 7.5 mg PO DAILY #90 tabs 06/30/24 blood sugar diagnostic (OneTouch #180 ea 07/09/24 Verio test strips) semaglutide 1 mg/dose (4 mg/3 mL) 1 mg (0.75 mL) subcut QWEEK 28 07/10/24 subcutaneous pen injector days #3 mL Allergies Allergy/AdvReac Type Severity Reaction Status Date / Time metformin AdvReac Intermediate diarrhea Verified 07/31/24 11:56 trazodone AdvReac Dizziness/L Verified 07/31/24 11:56 ighthead General Stated Complaint: Orthopedic AUDRA: 3 Exam Narrative Exam Narrative: Review of Systems: All systems reviewed & are unremarkable except as noted in HPI and below Well-developed, no acute distress NCAT RRR Unlabored respiratory effort Nondistended abdomen No midline back tenderness step-off or deformity Good strength bilaterally in lower extremities, left foot with tenderness along the fifth metatarsal, no deformity, good pulse, no open wounds Course Vital Signs Vital signs: Vital Signs Temperature 36.6 C 07/31/24 11:52 Pulse 71 07/31/24 11:52 Respiratory Rate 18 07/31/24 11:52 Blood Pressure 162/98 H 07/31/24 11:52 Pulse Oximetry 95 07/31/24 11:52 Temperature 36.6 C 07/31/24 11:52 Temperature Source Oral 07/31/24 11:52 Pulse 79 07/31/24 13:36 Respiratory Rate 18 07/31/24 13:36 Respiratory Effort Normal, Non-Labored 07/31/24 13:36 Respiratory Depth Normal 07/31/24 13:36 Respiratory Pattern Normal 07/31/24 13:36 Blood Pressure 122/80 07/31/24 13:36 Blood Pressure Mean 94 07/31/24 13:36 Blood Pressure Position Sitting 07/31/24 13:36 Pulse Oximetry 99 07/31/24 13:36 Oxygen Delivery Method Room Air 07/31/24 13:36 Oxygen Flow Rate 0 07/31/24 13:36 Pain Level 6 07/31/24 15:15 Medical Decision Making Evaluation of chronic atraumatic r left foot pain. The patient's examination of the foot is unremarkable. He is already seen his PCP and been referred to podiatry but has not followed up. I suppose this could be the beginnings of a Charcot foot or other complication from diabetes but there does not appear to be a wound and have a low suspicion for an osteomyelitis. X-ray was reviewed and independently interpreted: No acute bony process. Recommend continue Tylenol as needed and keep podiatry follow-up appointment. I do not suspect that the back pain in the foot pain are related to each other. The back pain is ongoing and chronic and has no signs of infectious or acute spinal cord pathology. Quality:SDOH Health Related Social Needs: No Data to Display PFSH All Active Problems Foot pain, left (Acute) Controlled diabetes mellitus (Acute) Left ankle pain (Acute) Bilateral hip pain (Acute) Upper back pain on left side (Acute) Nail dystrophy (Acute) Chronic insomnia (Acute) Rash (Acute) Onychomycosis (Acute) Tendinitis of long head of biceps brachii of left shoulder (Acute) Left rotator cuff tear (Acute) Personal history of nicotine dependence (Acute) quit 2017, 60 pk yr hx 12/2021-CT screen-small 3 mm nodule in the left-due in 1 year COPD (chronic obstructive pulmonary disease) (Chronic) Cervical spondylosis without myelopathy (Acute) Cervical radiculopathy (Acute) Warthin tumor (Acute) 2019, s/p excision ENT [facility] [place]/neck Fracture of pelvis (Acute) Diverticulitis of colon (Chronic) recurrent [address] [facility] Squamous cell carcinoma in situ of skin (Chronic 09/28/13) right neck 09/21/ Neg margins after surgery Smoker (Chronic) 2PPD; started at age 18, quit about 2017 60 plus pk yr Serrated adenoma of colon (Chronic 09/09/17) Restless legs (Chronic) Raynaud's disease (Chronic) Polyp of colon (Chronic 03/03/12) DR. JACK; TUBULAR ADENOMA 09/09/17 sessile serrated adenoma and ulcer bed Peptic reflux disease (Chronic) a. HH b. duodenal scarring c. H/O hemoptysis d. Keyanna (10/13) e. dialated stricture(08/12) f. H.Pylori + and TX'd Intention tremor (Chronic) Hyperlipidemia (Chronic) Hemorrhoids (Chronic) Essential hypertension (Chronic 09/27/13) Depressive disorder (Chronic) Chronic obstructive lung disease (Chronic) Carpal tunnel syndrome (Chronic) left Alcohol abuse (Chronic) HX of quitting and restarting; DWI x4-rehab Abnormal pupillary function (Chronic 03/06/13) DIALATED UN-REACTIVE LEFT PUPIL POST ACCIDENT Medical History Sessile colonic polyp (~09/2017) Hypertension COPD (chronic obstructive pulmonary disease) Diabetes mellitus type 2 in obese Tobacco abuse disorder Hyperlipidemia Depression Surgical History sphincterotomy Keyanna Fundoplication EGD - [facility] Colonoscopy - [facility] (09/09/17) Arthroscopy, Shoulder (~2000) Family History Mother Essential hypertension Heart disease Father Heart disease Sister No problems noted. Sister No problems noted. Sister No problems noted. Sister No problems noted. Brother No problems noted. Brother No problems noted. Brother No problems noted. Brother No problems noted. Brother No problems noted. Social History Smoking/Tobacco Use Status: Former Tobacco Use tobacco type: cigarettes Quit Date: 10/10/19 Smoking risk assessment performed?: Yes Alcohol Intake: former Year quit: 2004 Counseling provided: support program Details: Alcohol treatment program Drug use: Never Substance use type: does not use Household members: other Details: SELF Pets and animals: No Current gender identity: male What is your relationship status?: How often do you talk on the phone with friends or family?: twice per week Do you belong to any clubs or organized social groups?: decline to answer Panel score (0-1 are the most socially isolated patients): 0 Duration: 15-30 minutes/day Frequency: daily Special catherine needs: No Do you feel safe at home: Yes Do you feel safe in your relationship?: Yes
== END 2024-07-31 15:21 | disposition home or self-care (01) ==
PROVIDERS: Emergency Provider Emergency Medicine; PCP Family Medicine
DX: M79.672 Pain in left foot (principal); J44.9 Chronic obstructive pulmonary disease, unspecified; E11.9 Type 2 diabetes mellitus without complications; E78.5 Hyperlipidemia, unspecified; Z79.4 Long term (current) use of insulin; Z79.84 Long term (current) use of oral hypoglycemic drugs; Z87.891 Personal history of nicotine dependence
CPT/HCPCS: 99283; 73630

== ENCOUNTER 2025-06-06 14:13 | Outpatient (CLI) | payer MEDICARE, SELFPAY ==
--- NOTE | 2025-06-06 12:30 | DI.RAD_ITS ---
Exam(s) XR LUMBAR SPINE COMPLETE EXAM: XR LUMBAR SPINE COMPLETE CLINICAL HISTORY: M[age] Dorsalgia, unspecified, Worsening pain. TECHNIQUE: 2D digital imaging was performed. COMPARISON: CR XR lumbar spine complete from 04/06/2019 FINDINGS: Five views No evidence of fracture or listhesis nor pars interarticularis defects. There is significant disc space narrowing at L3-4 level, again noted be more prominent on the right than the left side and further progressed and resulting in an element of levoconvex scoliosis with epicenter at the L2-3 level, the amount of scoliosis increased when compared to images of March 2019. The other disc spaces exhibit normal height. There is some facet arthropathy at the lower 3 levels. Sacroiliac joints appear age-appropriate. No osseous lesions. IMPRESSION: Increasing degenerative scoliosis related to asymmetric narrowing of the right- side of the disc space at L2-3 level. There also prominent right-sided osteophytes at this level. Suspect that there is at least right-sided foraminal stenosis at this level. If clinically indicated follow-up MRI can be performed for added sensitivity/specificity. DATA REPOSITORY: RADIATION DOSE DELIVERED:
== END 2025-06-06 14:33 ==
LOC: DI 14:14
PROVIDERS: PCP Family Medicine; Visit Provider Nurse Practitioner Family
DX: M54.9 Dorsalgia, unspecified (principal); M41.26 Other idiopathic scoliosis, lumbar region
CPT/HCPCS: 72110